=== PATIENT | female | born 1965 | race Caucasian/White ===

== ENCOUNTER 2016-06-01 05:42 | Observation (INO) | payer OTHER ==
[2016-06-01] MEDS ORDERED: Sodium Citrate/Citric Acid* 15 ML UDC PO ONE (06:00)
[2016-06-01] MEDS ORDERED: Buffered Lidocaine 1% SYR 3ML* 3 ML/SYR SYRINGE INTRADERM ONE (06:00)
[2016-06-01] MEDS ORDERED: ceFAZolin 2 GM PREMIX (*) 2 GM/50 ML BAG IVPB ONE (06:29)
[2016-06-01] MEDS ORDERED: Sodium Citrate/Citric Acid* 15 ML UDC ONE (06:29)
[2016-06-01] MEDS ORDERED: Lidocain 1% EPI 1:100,000 * 30 ML MDV ONE (07:06)
[2016-06-01] MEDS ORDERED: Bacitracin IV* 50,000 UNITS INJ ONE (07:07)
[2016-06-01] MEDS ORDERED: Thrombin 5,000 UNITS* 1 APPLIC KIT - topical use - TOPICAL ONE (07:07)
[2016-06-01] MEDS ORDERED: Midazolam* 1 MG/ML 2 ML VIAL (2 MG) ONE (07:32)
[2016-06-01] MEDS ORDERED: fentaNYL* 50 MCG/ML 2 ML VIAL (100 MCG VIAL) ONE ×2 (07:32→09:31)
[2016-06-01] MEDS ORDERED: Propofol* 10 MG/ML 20 ML BTL IV PUSH ONE (07:33)
[2016-06-01] MEDS ORDERED: Lidocaine 2% PF * 5 ML VIAL ONE (07:33)
[2016-06-01] MEDS ORDERED: Rocuronium* 10 MG/ML VIAL ONE (07:33)
[2016-06-01] MEDS ORDERED: Dexamethasone IV* 4 MG/ML 1 ML (4 MG) ONE (08:56)
[2016-06-01] MEDS ORDERED: Acetaminophen TAB* 325 MG PO PRN (09:09)
[2016-06-01] MEDS ORDERED: Magnesium Hydroxide LIQ* 30 ML UDC PO PRN (09:09)
[2016-06-01] MEDS ORDERED: Ondansetron INJ* 2 MG/ML VIAL ONE (09:09)
[2016-06-01] MEDS ORDERED: Ketorolac INJ* 30 MG/ML 1 ML VIAL ONE (09:09)
[2016-06-01] MEDS ORDERED: Ondansetron INJ* 2 MG/ML VIAL IV PRN (09:09)
[2016-06-01] MEDS ORDERED: DiMENhydriNATE IV* 50 MG/ML VIAL IV PUSH PRN (09:26)
[2016-06-01] MEDS: fentaNYL* 50 MCG/ML 2 ML VIAL (100 MCG VIAL) IV PRN ×2 (09:33→09:45)
[2016-06-01] MEDS: HYDROcodone/ACETAMIN 5-325 MG* 1 TAB PO PRN ×3 (09:55→22:31)
[2016-06-01] MEDS ORDERED: HYDROcodone/ACETAMIN 5-325 MG* 1 TAB ONE (09:55)
[2016-06-01] MEDS ORDERED: Morphine INJ* 4 MG/ML 1 ML CARPUJECT ONE (11:23)
[2016-06-01] MEDS: Nicotine PATCH 21 MG/24 HR* PATCH TRANSDERM SCH (12:04)
[2016-06-01] MEDS: Morphine INJ* 4 MG/ML 1 ML CARPUJECT IV PRN ×2 (16:41→20:54)
[2016-06-01] MEDS ORDERED: Cyclobenzaprine TAB* 10 MG PO PRN (19:06)
[2016-06-02] MEDS: HYDROcodone/ACETAMIN 5-325 MG* 1 TAB PO PRN ×4 (02:27→15:44)
[2016-06-02] MEDS: Morphine INJ* 4 MG/ML 1 ML CARPUJECT IV PRN (03:38)
[2016-06-02] MEDS ORDERED: Nicotine Patch Removal NOTE FOLLOW UP SCH (06:00)
--- NOTE | 2016-06-02 07:50 | PN ---
Progress Note - Progress Note SOAP: Subjective: [This is a 51 year old female s/p decompressive lumbar laminectomy L5-S1 on the right and lumbar discectomy L5-S1 on the right, POD#1. She is feeling well this morning. Complains of soreness at the incision. She is ambulating independently. She is eating and drinking without difficulty. Pre-operative lower extremity symptoms are improved. Denies numbness, tingling, weakness and pain in the left lower extremity. ] Objective: [ Vital Signs: Temp Pulse Resp BP Pulse Ox 97.4 F 69 18 104/62 97 06/02/16 03:23 06/02/16 03:23 06/02/16 06:25 06/02/16 03:23 06/02/16 03:23 General: Alert and oriented. No distress. Neuro: Motor and sensory intact. Incision: Intact with kris. Dressing clean. Extremities: Full ROM] Assessment: [Satisfactory post-operative course.] Plan: [1. Discharge home today. 2. Discharge instructions including wound care and activity level were discussed with the patient. ]
[2016-06-02 08:32] VITALS: BP 92/45
[2016-06-02] MEDS: Nicotine PATCH 21 MG/24 HR* PATCH TRANSDERM SCH (09:12)
--- NOTE | 2016-06-05 09:16 | OP ---
DATE OF OPERATION: 06/01/16 - ROOM #337 DATE OF : 65 SURGEON: Jamie Velasco MD. NEEDLE LOOM OPERATOR: MAK Jeffries. ANESTHESIOLOGIST: Eduardo Rm DO ANESTHESIA: General. PRE-OP DIAGNOSIS: Lumbar spondylolisthesis, L5-S1, with stenosis, L5-S1 on the right. POST-OP DIAGNOSES: Lumbar spondylolisthesis, L5-S1, with stenosis, L5-S1 on the right; herniated nucleus pulposus, L5-S1, on the right. OPERATIVE PROCEDURE: Decompressive lumbar laminectomy, L5-S1 on the right with excision of herniated nucleus pulposus with microdissection. DESCRIPTION OF PROCEDURE: After satisfactory general anesthesia was obtained, the patient was placed on the operating table in the prone position with the chest supported on the Yomi frame and the back slightly flexed. The lumbar region was then clipped, prepped, and draped in a sterile manner for a lumbar laminectomy and a skin incision outlined from L5 to the sacrum. This incision was infiltrated with 1% Xylocaine with epinephrine, after which it was turned down sharply to the level of the lumbar fascia. The fascia was divided along the spinous processes of L5 and S1 and the paraspinal musculature was stripped away from these posterior elements using the periosteal elevator and monopolar cautery. Preoperative x-rays obtained had suggested foraminal stenosis at L5- S1 on the right side. The inferior aspect of L5 was thinned out, as well as the medial aspect of the facet complex. This resulted in a detachment of the medial facet which was thinned out and removed with the Kerr[place] and curettes. The decompression was carried superiorly until normal dura was encountered and the L5 nerve root could be identified out laterally. There was noted to be compression on the L5 nerve root by lateral foraminal disk herniation. At this point, the operating microscope was brought into the field and utilizing microdissection, epidural venous structures were coagulated and divided. An opening was made in the posterior longitudinal ligament and multiple fragments of disk material were removed from the foraminal area compressing the L5 nerve root. The disk space itself was then cleared of any loose disk material using pituitary forceps and curettes. At the conclusion of the decompression, both the L5 and S1 nerve roots were noted to be free in their course. After assuring adequate hemostasis, the wound was thoroughly irrigated, after which a piece of Gelfoam was placed over the laminectomy defect. The fascia was then reapproximated with 0 Vicryl suture. The subcutaneous tissues were closed with 3-0 Vicryl and the skin closed with skin clips. The estimated blood loss less than 50 cc and final sponge, padding, and needle counts were correct. The patient was taken to recovery room, extubated, and in stable condition. [id number]/[facility] #: [id number] [facility] CENTERRadha
--- NOTE | 2016-06-16 02:34 | DS ---
DISCHARGE SUMMARY: DATE OF ADMISSION: 06/01/16 DATE OF DISCHARGE: 06/02/16 DISCHARGE DIAGNOSES: 1. Spondylolisthesis, L5-S1. 2. Anxiety. SPECIAL PROCEDURES: Decompressive lumbar laminectomy, L5-S1, on the right and lumbar diskectomy, L5-S1, on the right. HOSPITAL COURSE: This 51-year-old female was seen in the office with signs and symptoms of symptomatic spondylolisthesis causing right-sided L5 nerve root compromise. She failed to improve over several months with conservative treatments and was admitted at this time for elective surgical intervention. On the day of admission, she was taken to surgery, where under general anesthesia, a decompressive lumbar laminectomy at L5-S1 on the right, and lumbar diskectomy at L5- S1 on the right operation was carried out. Postoperatively, she has been feeling very well. Pain was well controlled with oral pain medications. She was ambulating independently. She was eating, drinking, and voiding without difficulty. On the first postoperative day, she was discharged home to the care of her family. Discharge instructions including activity level and wound care were provided. She will be seen in office in approximately 7 to 10 days for followup and staple removal. DISCHARGE MEDICATIONS: [place] 5/325 mg 2 tabs by mouth every 4 hours as needed for pain. MAK OLEA [id number]/[facility] #: [id number] MTDD
== END 2016-06-02 16:25 | disposition home or self-care (01) ==
LOC: OR 05:42 → SSU 10:38
PROVIDERS: ADMIT Neurological Surgery; ATTEND Neurological Surgery
DX: M43.16 Spondylolisthesis, lumbar region (principal); M48.07 Spinal stenosis, lumbosacral region; Z87.891 Personal history of nicotine dependence
CPT/HCPCS: 96374; 96375; A9270-GY; G0378; J0690; J1100; J1885; J2250; J2270; J2405; J2704; J3010

== ENCOUNTER 2016-06-03 17:39 | Emergency (ER) | payer OTHER ==
[2016-06-03] MEDS ORDERED: Morphine INJ* 2 MG/ML 1 ML CARPUJECT IV ONE (18:28)
[2016-06-03] MEDS ORDERED: Morphine INJ* 4 MG/ML 1 ML CARPUJECT IV ONE (18:58)
[2016-06-03] MEDS ORDERED: Ondansetron INJ* 2 MG/ML VIAL IV ONE (18:59)
[2016-06-03] MEDS ORDERED: LORazepam INJ* 2 MG/ML 1 ML VIAL IV PUSH ONE (19:06)
[2016-06-03 19:17] LABS: Urine Bilirubin Negative (Negative); Urine Glucose Negative (Negative); Urine Nitrite Negative (Negative)
--- NOTE | 2016-06-03 19:41 | RAD ---
INDICATION: Short of breath. Wheezing. COMPARISON: May 25, 2016 TECHNIQUE: An AP portable view obtained at 1922 hours is submitted. FINDINGS: Bones/Soft Tissues: There are no acute bony findings. Cardiomediastinal: The cardiomediastinal silhouette is normal. Lungs: There are no infiltrates. Pleura: There are no pleural effusions. Other: None IMPRESSION: NO ACTIVE DISEASE.
[2016-06-03 20:09] LABS: Hematocrit 36 % (35-47); Hemoglobin 11.9 g/dl (12.0-16.0); Mean Corpuscular HGB Conc 33 g/dl (31-36); Mean Corpuscular Hemoglobin 31 pg (27-31); Mean Corpuscular Volume 94 fL (80-97); Mean Platelet Volume 11 um3 (7.4-10.4); Red Blood Count 3.85 10^6/ul (4.0-5.4); Red Cell Distribution Width 14 % (10.5-15); White Blood Count 10.7 10^3/ul (3.5-10.8)
[2016-06-03 20:24] LABS: Albumin 3.5 g/dL (3.2-5.2); BUN/Creatinine Ratio 14.1 (8-20); Calcium 8.8 mg/dL (8.6-10.3); EGFR African American 125.8 (>60); EGFR Non-African American 97.8 (>60); Globulin 3.2 g/dL (2-4); Potassium 4.2 mmol/L (3.5-5.0); Total Bilirubin 0.5 mg/dL (0.2-1.0); Total Protein 6.7 g/dL (6.4-8.9)
[2016-06-03] MEDS ORDERED: Ondansetron ODT TAB* 4 MG PO ONE (20:47)
[2016-06-03] MEDS ORDERED: HYDROcodone/ACETAMIN 5-325 MG* 1 TAB PO ONE (20:47)
[2016-06-03] MEDS ORDERED: LORazepam TAB(*) 1 MG PO ONE ×2 (20:47→21:18)
[2016-06-03] MEDS ORDERED: Polyethylene Glycol 3350* 17 GM PACKET PO SCH (21:00)
--- NOTE | 2016-06-03 21:18 | ED ---
Back Pain - HPI Summary HPI Summary: Patient arrives to ED 2 days s/p laminectomy of L5-S1. She was discharged home with oxycodone. She states while on the oxycodone she becomes very loopy, anxious, begins to hyperventilate and feeling of almost passing out. She notes uncontrolled pain, constipation and nausea. Last BM was 4 days ago. She called Dr. Velasco today and was told it will take some time to heal and may be painful in the meantime. - History of Current Complaint Chief Complaint: EDGeneral Stated Complaint: BACK PAIN/DIFF BREATHING Time Seen by Provider: 06/03/16 18:18 Hx Obtained From: Patient Onset/Duration: Gradual Onset Onset/Duration: Started Days Ago Timing: Intermittent Back Pain Location: Is Discrete @ - L5 lumbar spine Severity Initially: Moderate Severity Currently: Severe Pain Intensity: 10 Pain Scale Used: 0-10 Numeric Character: Aching Aggravating Symptom(s): Bending, Walking Alleviating Symptom(s): Rest, Position Associated Signs And Symptoms: Positive: Pain with Weight Bearing - Risk Factors AAA Risk Factors: Negative TAD Risk Factors: Negative Cauda Equina Risk Factors: Negative Epidural Abscess Risk Factors: Negative - Allergies/Home Medications Allergies/Adverse Reactions: Allergies Allergy/AdvReac Type Severity Reaction Status Date / Time Acetaminophen [From Percocet] Allergy Anxiety Verified 06/03/16 18:25 Adhesive Tape Allergy welts, Verified 06/03/16 17:41 inflamation Oxycodone [From Percocet] Allergy Anxiety Verified 06/03/16 18:25 PMH/Surg Hx/FS Hx/Imm Hx Previously Healthy: Yes Cardiovascular History: Denies: Hx Pacemaker/ICD GI History: Reports: Hx Gastroesophageal Reflux Disease - controls with diet modification, Hx Irritable Bowel - controls with diet modification Musculoskeletal History: Reports: Hx Arthritis - knees, shoulders, hands, feet, hips Sensory History: Reports: Hx Contacts or Glasses - wears glasses Denies: Hx Hearing Aid Opthamlomology History: Reports: Hx Contacts or Glasses - wears glasses Psychiatric History: Reports: Hx Anxiety, Hx Depression Denies: Hx Panic Disorder - Surgical History Surgery Procedure, Year, and Place: REMOVAL OF BUMP BEHIND LEFT EAR benign, breast reduction 2009,childbirth 1995 and 1998,gall bladder 1999 Hx Anesthesia Reactions: No Infectious Disease History: No Infectious Disease History: Denies: Traveled Outside the [place] in Last 30 Days - Social History Occupation: Employed Full-time Lives: With Family Alcohol Use: Rare Alcohol Amount: 1-3 drinks once or twice a month Hx Substance Use: Yes Substance Use Type: Reports: Prescribed Substance Use Comment - Amount & Last Used: 3-4 cups per day Hx Tobacco Use: Yes Smoking Status (MU): Former Smoker Type: Cigarettes Amount Used/How Often: 5 cigg/day Have You Smoked in the Last Year: Yes Review of Systems Constitutional: Negative Eyes: Negative Cardiovascular: Negative Positive: Shortness Of Breath, Cough Gastrointestinal: Negative Positive: Arthralgia - lumbar spine pain midline at L5-S1 Skin: Other - small 1cm incision over L5 -s! s/p laminectomy. 2 sutures placed. wound looks CDI Positive: Headache Psychological: Normal Positive: Anxious All Other Systems Reviewed And Are Negative: Yes Physical Exam Triage Information Reviewed: Yes Vital Signs On Initial Exam: Initial Vitals Temp Pulse Resp BP Pulse Ox 99.1 F 66 18 89/64 97 06/03/16 17:41 06/03/16 17:41 06/03/16 17:41 06/03/16 17:41 06/03/16 17:41 Vital Signs Reviewed: Yes Appearance: Positive: Well-Nourished, Pain Distress Skin: Positive: Warm, Skin Color Reflects Adequate Perfusion, Other - small incision over L5 with 2 sutures placed and bandage. Wound CDI Head/Face: Positive: Normal Head/Face Inspection Eyes: Positive: EOMI, BERENICE Neck: Positive: Nontender, No Lymphadenopathy Respiratory/Lung Sounds: Positive: Breath Sounds Present, Wheezes Cardiovascular: Positive: Normal, Pulses are Symmetrical in both Upper and Lower Extremities Musculoskeletal: Positive: Normal, Pain @ - L5 area of lumbar spine Neurological: Positive: Sensory/Motor Intact, Alert, Oriented to Person Place, Time, Speech Normal Psychiatric: Positive: Anxious AVPU Assessment: Alert - Jose D Coma Scale Best Eye Response: 4 - Spontaneous Best Motor Response: 6 - Obeys Commands Best Verbal Response: 5 - Oriented Coma Scale Total: 15 Diagnostics - Vital Signs Vital Signs Temp Pulse Resp BP Pulse Ox 06/03/16 20:04 16 06/03/16 20:01 72 126/79 87 06/03/16 20:00 64 89 06/03/16 19:51 64 98 06/03/16 19:18 42 85 06/03/16 18:33 18 06/03/16 18:30 60 110/49 98 06/03/16 18:18 79 134/49 97 06/03/16 18:09 66 97 06/03/16 17:44 72 96 06/03/16 17:43 89/64 06/03/16 17:41 99.1 F 66 18 89/64 97 - Laboratory Lab Results: Lab Results 06/03/16 06/03/16 06/03/16 Range/Units 17:55 20:00 20:00 WBC 10.7 (3.5-10.8) 10^3/ul RBC 3.85 L (4.0-5.4) 10^6/ul Hgb 11.9 L (12.0-16.0) g/dl Hct 36 (35-47) % MCV 94 (80-97) fL MCH 31 (27-31) pg MCHC 33 (31-36) g/dl RDW 14 (10.5-15) % Plt Count 163 (150-450) 10^3/ul MPV 11 H (7.4-10.4) um3 Neut % (Auto) 65.9 (38-83) % Lymph % (Auto) 24.1 L (25-47) % [place] % (Auto) 6.7 (1-9) % Eos % (Auto) 2.6 (0-6) % Baso % (Auto) 0.7 (0-2) % Absolute Neuts (auto) 7.0 (1.5-7.7) 10^3/ul Absolute Lymphs (auto) 2.6 (1.0-4.8) 10^3/ul Absolute Monos (auto) 0.7 (0-0.8) 10^3/ul Absolute Eos (auto) 0.3 (0-0.6) 10^3/ul Absolute Basos (auto) 0.1 (0-0.2) 10^3/ul Absolute Nucleated RBC 0 10^3/ul Nucleated RBC % 0 Sodium 139 (133-145) mmol/L Potassium 4.2 (3.5-5.0) mmol/L Chloride 100 L (101-111) mmol/L Carbon Dioxide 35 H (22-32) mmol/L Anion Gap 4 (2-11) mmol/L BUN 9 (6-24) mg/dL Creatinine 0.64 (0.51-0.95) mg/dL Est GFR ( Amer) 125.8 (>60) Est GFR (Non-Af Amer) 97.8 (>60) BUN/Creatinine Ratio 14.1 (8-20) Glucose 88 (70-100) mg/dL Calcium 8.8 (8.6-10.3) mg/dL Total Bilirubin 0.50 (0.2-1.0) mg/dL AST 63 H (13-39) U/L ALT 65 H (7-52) U/L Alkaline Phosphatase 58 (34-104) U/L Total Creatine Kinase 31 (10-223) U/L C-Reactive Protein Pending Total Protein 6.7 (6.4-8.9) g/dL Albumin 3.5 (3.2-5.2) g/dL Globulin 3.2 (2-4) g/dL Albumin/Globulin Ratio 1.1 (1-3) Urine Color Yellow Urine Appearance Cloudy Urine pH 5.0 (5-9) Ur Specific [place] 1.015 (1.010-1.030) Urine Protein Negative (Negative) Urine Ketones Negative (Negative) Urine Blood Negative (Negative) Urine Nitrate Negative (Negative) Urine Bilirubin Negative (Negative) Urine Urobilinogen Negative (Negative) Ur Leukocyte Esterase Negative (Negative) Urine Glucose Negative (Negative) Result Diagrams: 06/03/16 20:00 06/03/16 20:00 Lab Statement: Any lab studies that have been ordered have been reviewed, and results considered in the medical decision making process. Back Pain Course/Dx - Course Course Of Treatment: Patient complaining of pain, constipation, nausea, anxiety and adverse reaction to oxycodone. Patient given morphine on arrival. No relief. 2mg more of morphine given, ativan given and zofran given. Patient getting relief from medications. Patient agrees to follow up with DR. Velasco next week. Sent prescriptions of ativan, miralax, zofran and norco. Patient took norco after surgery with no adverse effects. - Diagnoses Differential Diagnosis/HQI/PQRI: Positive: Herniated Disc, Septic Arthritis, Strain Provider Diagnoses: Post surgical complication Discharge - Discharge Plan Condition: Stable Disposition: HOME Prescriptions: Hydrocodone/Acetamin 10/325(NF [[place] 10/325 (NF)] 1 tab PO Q6H #20 tab MDD 4 LORazepam TAB(*) [Ativan TAB(*)] 1 mg PO Q4H PRN #30 tab MDD 6 PRN Reason: Anxiety Ondansetron ODT TAB* [Zofran Odt TAB*] 4 mg PO Q6H PRN #20 tab.odt PRN Reason: Nausea Polyethylene Glycol 3350* [Miralax*] 17 gm PO DAILY #10 packet Patient Education Materials: Hydrocodone/Acetaminophen (By mouth), Polyethylene Glycol 3350 (By mouth), Anxiety (ED) Referrals: Dimas Saenz MD [Primary Care Provider] - Additional Instructions: Take all medications as directed. Follow up with Dr. Velasco next week. If symptoms worsen, come back to ED. Only use pain medication and anxiety medication as needed. Do not drive with these medications as they make you drowsy.
[2016-06-03] MEDS ORDERED: Ondansetron TAB* 4 MG PO ONE (21:19)
[2016-06-03 21:22] LABS: C Reactive Protein 42.54 mg/L (< 5.00)
[2016-06-03 21:26] VITALS: BP 120/74
--- NOTE | 2016-06-03 23:52 | PN ---
Progress Note - Progress Note Note: Patient called reporting her allergy was not to oxycodone as discussed during visit, but to hydrocodone, which is what provider prescribed for tonights visit. Explained on phone to dispense of other medication properly and will send prescription for morphine to pharmacy to [facility] tomorrow.
== END 2016-06-03 21:37 | disposition home or self-care (01) ==
LOC: ED 17:39
DX: M96.89 Other intraoperative and postprocedural complications and disorders of the musculoskeletal system (principal); Y83.8 Other surgical procedures as the cause of abnormal reaction of the patient, or of later complication, without mention of misadventure at the time of the procedure; Y92.9 Unspecified place or not applicable; Z88.5 Allergy status to narcotic agent; K21.9 Gastro-esophageal reflux disease without esophagitis; K58.9 Irritable bowel syndrome, unspecified; Z87.891 Personal history of nicotine dependence; F41.9 Anxiety disorder, unspecified
CPT/HCPCS: 36415; 71010; 80053; 81003; 82550; 85025; 86140; 96374; 96375; 96376; 99284; A9270-GY; J2060; J2270; J2405

== ENCOUNTER 2017-09-02 15:58 | Emergency (ER) | payer OTHER ==
--- OUTSIDE RECORDS SUMMARY | 2017-09-02 16:06 | XMS REPORT ---
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 Onset: 05/02/2013 Attention deficit hyperactivity Altagracia Herrera M.D. Active disorder Onset: 05/02/2013 Degenerative joint disease Altagracia Herrera M.D. Active involving multiple joints Onset: 05/02/2013 Gastroesophageal reflux disease Altagracia Herrera M.D. Active Onset: 05/02/2013 Tobacco user Altagracia Herrera M.D. Active Onset: 05/02/2013 Varicose veins of lower extremity Altagracia Herrera M.D. Active Family History Date Family Member(s) Problem(s) Comments : (age 65 Father due to Lymphoma Years) Father Hypertension Father Obesity Mother Diabetes Mother Hypercholesterolemia Children 2 First Daughter Bipolar Disorder First Daughter Aspberger's Syndrome Paternal Grandfather due to Peptic Ulcer () Disease Paternal Grandfather due to Alcoholism () Paternal Grandmother due to Alcoholism () Paternal Grandmother due to Liver Disease () : (age 52 Maternal Grandfather due to NE Years) : (age 83 Maternal Grandmother due to Blood Disorder Years) Maternal Grandmother Pneumonia Social History Type Date Description Comments Education Currently working on bachelor's degree Marital Status Lives With Lives with son, daughter Lives With Mother Occupation Currently Working Cigarette Use Light tobacco smoker (10 or fewer cigarettes/day) ETOH Use Rarely consumes alcohol Recreational Drug Use Used OTC ephedrine drinking. 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 05/09 Nortriptyline 11/16 Hx Capsules 25mg 30cap 1 tab by M54.31 Dimas HCL s mouth daily [place], - every night 05/09 Gabapentin 08/19 Hx Capsules 300mg 45cap 1 tab by Dimas s mouth three [place], - times a day 05/09 as needed Ibuprofen 08/19 Hx Tablets 600mg 45tab 1 tab by Dimas s mouth three [place], - times a day 05/09 as needed Sudafed 05/24 Hx Tablets 30mg 30tab 1 tab by J01.90 Dimas s mouth three [place], - times a day 08/19 facial pressure Fluticasone 05/24 Hx Suspension 50mcg/Act 1unit 1 puff J01.90 Dimas Propionate s daily [place], - MD 08/19 Augmentin 05/24 Hx Tablets 875-125mg 20tab 1 take by Dimas s mouth [place], - tablet 05/09 every hours for 10 days for infection Azithromycin 02/17 Hx Tablets 250mg 6tabs take 2 J20.9 tablets by Dany, - mouth one 05/24 time take one daily for 4 days Hydrocodone-Kervin 11/13 Hx Tablets 5-325mg 15fif 1 by mouth 727.3 Nicolasa taminophen teen q 6 hours Pola, - as needed [employer]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 M.D. 11/13 Prednisone 01/22 Hx Tablets 20mg 10tab take two Nicolasa s tablets Pola, - daily for 5 [employer]ETLAND SCIENTIST-C 02/17 days time Azithromycin 01/22 Hx Tablets 250mg 6tabs take 2 Altagracia tablets by Alverto Herrera, - mouth today M.D. 11/13 and tablet by mouth daily days 2-5 Qvar 01/19 Hx Aerosol 80mcg/Act 1inha take one .11 lers puff by Alverto Herrera, - mouth twice M.D. 01/22 a Ventolin HFA 01/19 Hx Aerosol 108(90Bas 1unit take one 519.11 e) s puff by Alverto Herrera, - mcg/Act mouth every M.D. 11/13 4-6 hours /2014 as needed for cough Robitussin ac 01/19 Hx 300ml 1-2 J98.01 teaspoon by Dany, - mouth MD 08/19 q4-6hr needed cough/pain No Active 10/24 Hx Unknown Medications /2013 - 11/12 Xanax 10/30 Hx Tablets 0.25mg 20tab One To Two 300.00 Zoila A. /2006 s Tabs PO bid Alayna, - F.N.P.C. 05/02 Metrogel 08/27 Hx Cream 0.75% 45G Apply bid 695.3 Zoila A. /2006 To Face Alayna, - F.N.P.C. 05/02 Robitussin A-c 04/26 Hx Syrup 100mg;10m 4Oz One -Two g/5ML Teaspoons P. Blegen, - PO QHS prn M.D. 08/27 Cough- Causes Drowsiness Proventil HFA 04/26 Hx Aerosol 90mcg/Dos 2 Puffs Q 4 e Hours prn P. Blegen, - M.D. 05/02 Zithromax Z-Maurilio 04/26 Hx Tablets 250mg 6tabs Two PO qd Today And P. Blegen, - Then One PO M.D. 08/27 qd For Days Azmacort Mdi 04/26 Hx Inhaler 20Gra 4 Puffs bid ms as Directed P. Blegen, - For 2-4 M.D. Rinse Mouth After Physical 10/17 Hx 12uni evaluate 723.1 ts and treat Aubrey - neck and Baltazar, 05/02 shoulder M.D. pain Xenical 01/23 Hx Capsules 120mg 90cap one po tid V70.0 s before Aubrey - meals Baltazar, 08/27 M.D. /2006 Amoxicillin 08/28 Hx Tablets 500mg 30tab 1 po tid 034.0 s Aubrey - Baltazar, 01/23 M.D. Keflex 03/29 Hx Capsules 500mg 14cap 1 bid x 7 s days [facility] M.DMynor 05/11 Ultracet 10/26 Hx 20uni 1-2 po at 729.4 Viridiana 37.5/ ts hs prn pain Aubrey Ledesma, 05/11 M.D. Ibuprofen 09/14 Hx Tablets 600mg 120ta one po tid bs to qid prn Kavon.WMynor - pain Baltazar, 09/14 M.D. Ibuprofen 09/14 Hx Tablets 800mg 90tab 1 po q8 s hours prn Aubrey - heel pain, Baltazar, 05/02 take with M.D. food Zithromax 07/11 Hx Tablets 250mg 6tabs 2 on day 465.9 Zoila A. one, then Alayna, - one qd x4 F.N.P.C. Albuterol 07/11 Hx Aerosol 90mcg/Dos 17gm two puffs 465.9 Zoila A. e every four Alayna, - - six hours F.N.P.C. 05/11 prn wheeze /2005 Clarinex 11/13 Hx Tablets 5mg 3tabs one po qd prn hives Soboroff, - M.D. 05/09 Naprosyn-Ec 02/11 Hx Tablets 500mg 60tab one bid 724.5 s starting 2 K.W. - days prior Baltazar, 05/09 to menses M.D. ecah month. Aerobid 11/12 Hx Inhaler One two puffs by Yovany Farmer, - aerochamber M.D. 05/09 twice daily /2004 - rinse mouth with water after last puffs- use every day for 2 weeks Aerochamber - 11/12 Hx Unit One use with Nirmala metered P. Blegen, - dose M.D. 05/09 inhalers /2004 -PT will bring in coupon for free chamber Humibid DM 11/12 Hx Tablets 40tab take two Nirmala s tablets by Yovany Farmer, - mouth twice M.D. 05/09 daily /2004 along with lots of liquids Prednisone 11/12 Hx Tablets 20mg 9tabs 3 po qd with food Yovany Farmer, - today then M.D. 05/09 2 po qd for 3 days as directed Flexeril 10/08 Hx Tablets 10mg 30tab one tid 724.2 Viridiana /2003 s Aubrey Ledesma, 05/09 M.D. Buspar 09/02 Hx Tablets 5mg 90tab take one 300.02 Zoila A. s tablet two Alayna, - to three F.N.P.C. 05/02 times daily Buspar 07/09 Hx 10mg 30uni 1 po bid to 300.02 ts tid Aubrey Ledesma, 05/02 M.DMynor 625.4 Buspar 06/24/2002 - Hx Tablets 5mg 30tabs Take One Tablet 300.02 Unknown 07/09/2002 Daily, and increase to tid prn anxiety Zoloft 02/06/2002 - Hx Tablets 100mg 30tabs One half tab qd 300.02 Viridiana 03/27/2002 for one week, K.W. then increase to Baltazar, one tab po qd M.D. Physical 02/06/2002 - Hx evaluate for l 300.02 Viridiana Therapy 05/09/2004 thoracic Aubrey radiculopathy Baltazar, and treat as M.D. needed Ibuprofen 02/06/2002 - Hx 800mg 90units one po tid with 724.5 Viridiana Tablets 02/11/2003 food Aubrey Ledesma M.D. Zantac 01/28/2002 - Hx Tablets 150mg 30tabs One bid Nicolasa 03/27/2002 Sean Rocha Xanax 01/23/2002 - Hx Tablets 0.5mg 90tabs 1/2 To One tid 300.02 Viridiana 03/27/2002 prn Aubrey Ledesma M.D. 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 SCIENTIST-C Immunizations CPT Code Status Date Vaccine Lot # [id number] Given 11/21/2016 Tdap (Adacel) [id number] Given 12/10/2015 Influenza Virus Vaccine, Quadrivalent, 3 Yr > [id number] Quad, Preserv Free 23187 Given 03/19/2014 Influenza Virus Vaccine, Quadrivalent, 3 Yr > Quad, Preserv Free 34192 Given 05/02/2013 Flumist, Influenza Vaccine Quadrivalent, Live For [id number] Intranasal Use 59284 Given 01/24/2007 Influenza Virus Vaccine, 3 Yrs And Above [id number] 95530 Given 02/11/2003 Influenza Virus Vaccine, 3 Yrs And Above 58171 Given 03/27/2002 Influenza Virus Vaccine, 3 Yrs And Above Vital Signs Date Vital Result Comment 08/14/2017 Weight 234.00 lb Weight in kg's 106.142 BP Systolic 116 mmHg BP Diastolic 78 mmHg Heart Rate 78 /min Body Temperature 97.0 F Respiratory Rate 16 /min Last Menstrual Period 5755383 O2 % BldC Oximetry 98 % 05/31/2017 Weight 230.00 lb pt stated Weight in kg's 104.328 BP Systolic 122 mmHg BP Diastolic 80 mmHg Heart Rate 100 /min Body Temperature 98.0 F Respiratory Rate 14 /min O2 % BldC Oximetry 98 % 11/23/2016 Weight 233.00 lb Weight in kg's 105.689 BP Systolic 128 mmHg BP Diastolic 80 mmHg Heart Rate 80 /min Body Temperature 97.1 F Respiratory Rate 16 /min O2 % BldC Oximetry 98 % 11/21/2016 Weight 230.00 lb Weight in kg's 104.328 BP Systolic 110 mmHg BP Diastolic 80 mmHg Heart Rate 92 /min Body Temperature 98.1 F Respiratory Rate 14 /min Height 68.5 inches 5'8.50" BMI (Body Mass Index) 34.5 kg/m2 05/09/2016 Weight 228.00 lb Weight in kg's 103.421 BP Systolic 128 mmHg BP Diastolic 84 mmHg Heart Rate 88 /min Body Temperature 98.3 F Respiratory Rate 26 /min O2 % BldC Oximetry 98 % 12/10/2015 Weight 225.00 lb Weight in kg's 102.060 BP Systolic 110 mmHg BP Diastolic 72 mmHg Heart Rate 88 /min O2 % BldC Oximetry 98 % 11/17/2015 Weight 220.00 lb Weight in kg's 99.792 BP Systolic 10 mmHg BP Diastolic 68 mmHg Heart Rate 76 /min Body Temperature 98.0 F Respiratory Rate 16 /min 08/20/2015 Weight 220.00 lb Weight in kg's 99.792 BP Systolic 129 mmHg BP Diastolic 100 mmHg Heart Rate 104 /min 05/24/2015 Weight 221.00 lb Weight in kg's 100.246 BP Systolic 141 mmHg BP Diastolic 87 mmHg Heart Rate 80 /min Body Temperature 98.4 F O2 % BldC Oximetry 99 % 02/17/2015 Weight 217.00 lb Weight in kg's 98.431 BP Systolic 120 mmHg BP Diastolic 76 mmHg Heart Rate 80 /min Body Temperature 98.3 F 01/04/2015 Weight 218.00 lb Weight in kg's 98.885 BP Systolic 110 mmHg BP Diastolic 80 mmHg Heart Rate 76 /min 11/13/2014 Weight 220.00 lb Weight in kg's 99.792 BP Systolic 110 mmHg BP Diastolic 70 mmHg Heart Rate 68 /min 09/22/2014 Weight 228.00 lb Weight in kg's 103.421 BP Systolic 110 mmHg BP Diastolic 80 mmHg Heart Rate 72 /min Right Visual Acuity Distance 20/20 Corrected Left Visual Acuity Distance 20/20 Both Visual Acuity Distance 20/20 2014 Weight 234.00 lb Weight in kg's 106.142 BP Systolic 112 mmHg BP Diastolic 56 mmHg Heart Rate 76 /min Body Temperature 97.0 F O2 % BldC Oximetry 95 % 01/19/2014 Weight 234.00 lb Weight in kg's 106.142 BP Systolic 120 mmHg BP Diastolic 70 mmHg Heart Rate 82 /min Body Temperature 97.9 F O2 % BldC Oximetry 98 % On Room Air 10/24/2013 Weight 236.00 lb Weight in kg's 107.050 BP Systolic 120 mmHg BP Diastolic 75 mmHg Heart Rate 84 /min Body Temperature 97.7 F 05/02/2013 Weight 223.00 lb Weight in kg's 101.153 BP Systolic 116 mmHg BP Diastolic 80 mmHg Heart Rate 84 /min Height 69 inches 5'9" BMI (Body Mass Index) 32.9 kg/m2 Last Menstrual Period [id number] Tubal Ligation 01/24/2007 Weight 285.00 lb Weight in kg's 129.276 BP Systolic 118 mmHg BP Diastolic 80 mmHg Heart Rate 74 /min Height 70 inches 5'10" BMI (Body Mass Index) 40.9 kg/m2 10/30/2006 Weight 282.00 lb Weight in kg's 127.915 BP Systolic 132 mmHg BP Diastolic 72 mmHg Heart Rate 72 /min Body Temperature 98.0 F oral Height 70 inches 5'10" BMI (Body Mass Index) 40.5 kg/m2 09/25/2006 Weight 280.00 lb Weight in kg's 127.008 BP Systolic 120 mmHg BP Diastolic 70 mmHg Body Temperature 97.0 F Height 70 inches 5'10" BMI (Body Mass Index) 40.2 kg/m2 08/27/2006 Weight 284.00 lb Weight in kg's 128.822 BP Systolic 120 mmHg BP Diastolic 80 mmHg Heart Rate 84 /min Respiratory Rate 18 /min Height 70 inches 5'10" BMI (Body Mass Index) 40.7 kg/m2 04/26/2006 Weight 278.00 lb Weight in kg's 126.101 BP Systolic 120 mmHg BP Diastolic 68 mmHg Heart Rate 68 /min Body Temperature 97.0 F 01/23/2006 Weight 274.00 lb Weight in kg's 124.286 BP Systolic 120 mmHg BP Diastolic 68 mmHg Heart Rate 62 /min 08/28/2005 Weight 265.00 lb Weight in kg's 120.204 BP Systolic 130 mmHg BP Diastolic 82 mmHg Body Temperature 97.0 F 05/11/2005 BP Systolic 110 mmHg BP Diastolic 72 mmHg Heart Rate 76 /min Body Temperature 97.0 F Last Menstrual Period 5103021 03/29/2005 Weight 268.00 lb Weight in kg's 121.565 BP Systolic 128 mmHg BP Diastolic 82 mmHg 11/23/2004 BP Systolic 118 mmHg BP Diastolic 60 mmHg Body Temperature 97.3 F 11/15/2004 Weight 266.00 lb Weight in kg's 120.658 BP Systolic 120 mmHg BP Diastolic 80 mmHg 10/26/2004 Weight 267.00 lb Weight in kg's 121.111 BP Systolic 122 mmHg BP Diastolic 80 mmHg Heart Rate 80 /min 08/30/2004 Weight 264.00 lb Weight in kg's 119.750 BP Systolic 120 mmHg BP Diastolic 82 mmHg 07/11/2004 Weight 269.00 lb Weight in kg's 122.018 BP Systolic 110 mmHg BP Diastolic 80 mmHg Body Temperature 97.5 F Height 70 inches 5'10" BMI (Body Mass Index) 38.6 kg/m2 05/09/2004 Weight 274.00 lb Weight in kg's 124.286 BP Systolic 122 mmHg BP Diastolic 80 mmHg Heart Rate 76 /min Respiratory Rate 18 /min Height 70 inches 5'10" BMI (Body Mass Index) 39.3 kg/m2 Last Menstrual Period 0979898 11/14/2003 Weight 267.00 lb With Shoes Weight in kg's 121.111 Body Temperature 97.0 F 07/07/2003 Weight 269.00 lb Weight in kg's 122.018 BP Systolic 114 mmHg BP Diastolic 72 mmHg Body Temperature 97.2 F 02/11/2003 Weight 272.00 lb Weight in kg's 123.379 BP Systolic 106 mmHg BP Diastolic 70 mmHg Heart Rate 76 /min Height 69.5 inches BMI (Body Mass Index) 39.6 kg/m2 Last Menstrual Period 7842064 11/12/2002 Weight 271.00 lb Weight in kg's 122.926 BP Systolic 120 mmHg BP Diastolic 76 mmHg Body Temperature 98.6 F 10/08/2002 Weight 270.00 lb Weight in kg's 122.472 BP Systolic 118 mmHg BP Diastolic 76 mmHg 08/12/2002 Weight 270.00 lb Weight in kg's 122.472 BP Systolic 120 mmHg BP Diastolic 76 mmHg 07/09/2002 Weight 273.00 lb Weight in kg's 123.833 BP Systolic 100 mmHg BP Diastolic 68 mmHg Heart Rate 88 /min Body Temperature 97.3 F 06/24/2002 Weight 268.00 lb Weight in kg's 121.565 BP Systolic 110 mmHg BP Diastolic 80 mmHg 03/27/2002 Weight 269.00 lb Weight in kg's 122.0 BP Systolic 104 mmHg BP Diastolic 68 mmHg Heart Rate 72 /min 02/06/2002 Weight 266.00 lb Weight in kg's 120.7 BP Systolic 112 mmHg BP Diastolic 68 mmHg Heart Rate 80 /min Height 68.75 inches BMI (Body Mass Index) 39.6 kg/m2 Last Menstrual Period [id number] 01/28/2002 BP Systolic 100 mmHg BP Diastolic 68 mmHg Heart Rate 78 /min 01/23/2002 Weight 267.00 lb Weight in kg's 121.1 BP Systolic 104 mmHg BP Diastolic 68 mmHg Heart Rate 72 /min Results Test Date Test Result H/L Range Note Urine DIP 08/14/2017 Leukocytes ++ neg Urine Nitrites pos Neg Urobilinogen norm Norm Total Protein, Urine + Neg Urine pH 5 5-6 Urine Blood 250 High Neg Specific [place] 1.025 High 1.01-1.02 Urine Ketones neg Neg Urine Bilirubin neg Neg Urine Glucose norm Norm Laboratory test 06/21/2017 Surgical Interface SEE RESULT BELOW 1 finding Order Laboratory test 01/11/2017 Surgical Pathology SEE RESULT BELOW 2, 3 finding Laboratory test 01/05/2017 Hepatitis C Antibody Nonreactive Nonreactive finding Lipid Profile 01/05/2017 Triglycerides 178 mg/dL 4 (Trig/Chol/HDL) Cholesterol 204 mg/dL 5 HDL Cholesterol 38.4 mg/dL 6 LDL Cholesterol 130 mg/dL 7 Comp Metabolic Panel 01/05/2017 Sodium 139 mmol/L 133-145 Potassium 4.5 mmol/L 3.5-5.0 Chloride 106 mmol/L 101-111 Co2 Carbon Dioxide 28 mmol/L 22-32 Anion Gap 5 mmol/L 2-11 Glucose 95 mg/dL 70-100 Blood Urea Nitrogen 13 mg/dL 6-24 Creatinine 0.67 mg/dL 0.51-0.95 BUN/Creatinine Ratio 19.4 8-20 Calcium 8.7 mg/dL 8.6-10.3 Total Protein 6.8 g/dL 6.4-8.9 Albumin 4.0 g/dL 3.2-5.2 Globulin 2.8 g/dL 2-4 Albumin/Globulin Ratio 1.4 1-3 Total Bilirubin 0.40 mg/dL 0.2-1.0 Alkaline Phosphatase 60 U/L 34-104 Alt 14 U/L 7-52 Ast 15 U/L 13-39 Egfr Non- 92.8 >60 Egfr 119.3 >60 8 CBC Auto Diff 01/05/2017 White Blood Count 8.2 10^3/uL 3.5-10.8 Red Blood Count 4.27 10^6/uL 4.0-5.4 Hemoglobin 13.7 g/dL 12.0-16.0 Hematocrit 41 % 35-47 Mean Corpuscular Volume 95 fL 80-97 Mean Corpuscular Hemoglobin 32 pg High 27-31 Mean Corpuscular HGB Conc 34 g/dL 31-36 Red Cell Distribution Width 13 % 10.5-15 Platelet Count 207 10^3/uL 150-450 Mean Platelet Volume 11 um3 High 7.4-10.4 Abs Neutrophils 4.6 10^3/uL 1.5-7.7 Abs Lymphocytes 2.4 10^3/uL 1.0-4.8 Abs Monocytes 0.6 10^3/uL 0-0.8 Abs Eosinophils 0.4 10^3/uL 0-0.6 Abs Basophils 0.1 10^3/uL 0-0.2 Abs Nucleated RBC 0 10^3/uL Granulocyte % 56.5 % 38-83 Lymphocyte % 29.9 % 25-47 Monocyte % 7.8 % 1-9 Eosinophil % 5.0 % 0-6 Basophil % 0.8 % 0-2 Nucleated Red Blood Cells % 0 CBC Auto Diff 06/03/2016 White Blood Count 10.7 10^3/uL 3.5-10.8 Red Blood Count 3.85 10^6/uL Low 4.0-5.4 Hemoglobin 11.9 g/dL Low 12.0-16.0 Hematocrit 36 % 35-47 Mean Corpuscular Volume 94 fL 80-97 Mean Corpuscular Hemoglobin 31 pg 27-31 Mean Corpuscular HGB Conc 33 g/dL 31-36 Red Cell Distribution Width 14 % 10.5-15 Platelet Count 163 10^3/uL 150-450 Mean Platelet Volume 11 um3 High 7.4-10.4 Abs Neutrophils 7.0 10^3/uL 1.5-7.7 Abs Lymphocytes 2.6 10^3/uL 1.0-4.8 Abs Monocytes 0.7 10^3/uL 0-0.8 Abs Eosinophils 0.3 10^3/uL 0-0.6 Abs Basophils 0.1 10^3/uL 0-0.2 Abs Nucleated RBC 0 10^3/uL Granulocyte % 65.9 % 38-83 Lymphocyte % 24.1 % Low 25-47 Monocyte % 6.7 % 1-9 Eosinophil % 2.6 % 0-6 Basophil % 0.7 % 0-2 Nucleated Red Blood Cells % 0 Comp Metabolic Panel 06/03/2016 Sodium 139 mmol/L 133-145 Potassium 4.2 mmol/L 3.5-5.0 Chloride 100 mmol/L Low 101-111 Co2 Carbon Dioxide 35 mmol/L High 22-32 Anion Gap 4 mmol/L 2-11 Glucose 88 mg/dL 70-100 Blood Urea Nitrogen 9 mg/dL 6-24 Creatinine 0.64 mg/dL 0.51-0.95 BUN/Creatinine Ratio 14.1 8-20 Calcium 8.8 mg/dL 8.6-10.3 Total Protein 6.7 g/dL 6.4-8.9 Albumin 3.5 g/dL 3.2-5.2 Globulin 3.2 g/dL 2-4 Albumin/Globulin Ratio 1.1 1-3 Total Bilirubin 0.50 mg/dL 0.2-1.0 Alkaline Phosphatase 58 U/L 34-104 Alt 65 U/L High 7-52 Ast 63 U/L High 13-39 Egfr Non- 97.8 >60 Egfr 125.8 >60 9 Laboratory test finding 06/03/2016 Creatine Kinase 31 U/L 10-223 C Reactive Protein 42.54 mg/L High < 5.00 10 Urinalysis Profile 06/03/2016 Urine Color Yellow Urine Appearance Cloudy Urine Specific [place] 1.015 1.010-1.030 Urine pH 5.0 5-9 Urine Urobilinogen Negative Negative Urine Ketones Negative Negative Urine Protein Negative Negative Urine Leukocytes Negative Negative Urine Blood Negative Negative Urine Nitrite Negative Negative Urine Bilirubin Negative Negative Urine Glucose Negative Negative Laboratory test finding 10/24/2013 Magnesium 2.1 mg/dL 1.9-2.7 Vitamin D, 25 Hydroxy 10/24/2013 25-Hydroxy Vitamin D2 <4.0 ng/mL 25-Hydroxy Vitamin D3 30 ng/mL 25-Hydroxy Vitamin D Total 30 ng/mL 11 Laboratory test finding 10/24/2013 C Reactive Protein 3.99 mg/L < 5.00 12 TSH (Thyroid Stimulating Horm) 1.22 IU/mL 0.34-5.60 Vitamin B12 382 pg/mL 180-914 13 Lyme Western Blot 10/24/2013 Lyme Disease IgG Ab WB Negative Negative Lyme Disease IgG Bands Present p41, kDa Lyme Disease IgM Ab WB Negative Negative Lyme Disease IgM Bands Present No bands detecte <SEE NOTE> kDa 14 Lyme Disease Interpretation See Comment 15 Arthritis Panel 10/24/2013 Erythrocyte Sed Rate 17 mm/Hr High 0-14 Uric Acid 3.9 mg/dL 2.3-6.6 Karla (Anti-Nuclear AB) Screen Negative Negative Rheumatoid Factor <15 IU/mL <15 16 Lipid Profile (Trig/Chol/HDL) 05/02/2013 Triglycerides 147 mg/dL 40-200 Cholesterol 238 mg/dL High Less than 200 HDL Cholesterol 46 mg/dL 40-60 17 Cholesterol/HDL Ratio 5.2 Average High 1-4.44 LDL Cholesterol 162.6 High Less Than 100 18 Liver Function Panel 05/02/2013 Total Protein 7.3 g/dL 6.2-8.1 Albumin 4.4 g/dL 3.6-5.4 Globulin 2.9 g/dL 2-4 Albumin/Globulin Ratio 1.5 1-3 Total Bilirubin 0.9 mg/dL 0.4-1.5 Direct Bilirubin 0.1 mg/dL 0.1-0.5 Indirect Bilirubin 0.8 mg/dL 0.3-1.0 Alkaline Phosphatase 68 U/L 30-110 Alt 17 U/L 14-54 Ast 19 U/L 12-42 Laboratory test finding 05/02/2013 TSH (Thyroid Stimulating 1.51 miu/mL 0.34-5.60 Horm) Vitamin B12 267 pg/mL 180-914 Vitamin D 1,25-Dihydroxy 49 pg/mL 18-78 19 CBC No Diff 05/02/2013 White Blood Count 11.5 10^3/uL High 4.8-10.8 Red Blood Count 4.60 10^6/uL 4.0-5.4 Hemoglobin 15.2 g/dL 12.0-16.0 Hematocrit 44 % 35-47 Mean Corpuscular Volume 96 fL 80-97 Mean Corpuscular Hemoglobin 33 pg High 27-31 Mean Corpuscular HGB Conc 35 g/dL 31-36 Red Cell Distribution Width 13 % 10.5-15 Platelet Count 236 10^3/uL 150-450 Mean Platelet Volume 11 um3 High 7.4-10.4 Urine DIP 10/30/2006 Leukocytes neg Neg Urine Nitrites neg Neg Urine pH 5 5-6 Total Protein, Urine neg Neg Urine Glucose norm Norm Urine Ketones neg Neg Urobilinogen norm Norm Urine Bilirubin neg Neg Urine Blood neg Neg Specific [place] n/a Low 1.01-1.02 Urine Culture And 09/25/2006 Urine Culture SPECIMEN CONTAIN 20 Sensitivites Sensitivi <SEE NOTE> Urine DIP 09/25/2006 Leukocytes NEG Neg Urine Nitrites NEG Neg Urine pH 5NL 5-6 Total Protein, Urine NL Neg Urine Glucose NL Norm Urine Ketones NL Neg Urobilinogen NL Norm Urine Bilirubin NL Neg Urine Blood NL Neg Specific [place] N/A Low 1.01-1.02 Laboratory test finding 08/27/2006 FSH 5.52 MIU/ML 21 Lutenizing Hormone 7.4 MIU/ML 22 Urine DIP 08/27/2006 Leukocytes NEG Neg Urine Nitrites 5 High Neg Urine pH NL Low 5-6 Total Protein, Urine NL Neg Urine Glucose NL Norm Urine Ketones NL Neg Urobilinogen NL Norm Urine Bilirubin NL Neg Urine Blood NL Neg Specific [place] N/A Low 1.01-1.02 Comp Metabolic Panel 08/22/2006 One Over Creatinine 1.11 23 Anion Gap 8.0 mmol/L 2-11 23, 24 Albumin/Globulin Ratio 1.3 1-3 23 Albumin 3.8 GM/DL 3.6-5.4 23 Alkaline Phosphatase 61 U/L 30-110 23 Alt (SGPT) 32 U/L 14-54 23 Ast (Sgot) 27 U/L 12-42 23 BUN 5 mg/dL Low 6-24 23 Calcium 8.5 mg/dL Low 8.7-10.2 23 Chloride 103 mmol/L 101-111 23 Co2 (Carbon Dioxide) 29.0 mmol/L 22-32 23 Globulin 2.9 GM/DL 2-4 23 Glucose 95 mg/dL 70-105 23 Potassium 4.3 mmol/L 3.5-5.0 23 Sodium 140 mmol/L 135-145 23 Bilirubin Total 0.6 mg/dL 0.4-1.5 23 Total Protein 6.7 GM/DL 6.2-8.1 23 BUN/Creatinine Ratio 5.6 Low 8-20 23 Creatinine 0.9 mg/dL 0.5-1.4 23 Lipid Profile 08/22/2006 Cholesterol/HDL Ratio 5.81 AVERAGE High 1-4.44 23 (Trig/Chol/HDL) Cholesterol 209 mg/dL High Less Than 200 23, 25 Triglyceride 128 mg/dL 40-200 23 High Density Lipoprotein 36 mg/dL Low 40-60 23, 26 Low Density Lipoprotein 147 mg/dL High Less Than 100 23, 27 CBC With Electronic Diff 08/22/2006 White Blood Count 6.3 CUMM 4.8-10.8 23 Abs Basophils 0 0-0.2 23 Abs Eosinophils 0.2 0-0.6 23 Absolute Neutrophil Count 3.5 1.5-7.7 23 Abs Lymphs 2.0 1.0-4.8 23 Abs Mononuclear 0.5 0-0.8 23 Basophil % 0.5 % 0-2 23 Hematocrit 39 % 35-47 23 Hemoglobin 13.7 g/dL 12.0-16.0 23 Eosinophil % 3.2 % 0-6 23 Gran % 56.4 % 38-83 23 Lymph % 32.3 % 20-45 23 Mean Corpuscular HGB Cone 35 g/dL 32-36 23 Mean Corpuscular Hemoglob 31 pg 27-31 23 Mean Corpuscular Volume 91 um3 79-97 23 Mean Platelet Volume 10.1 um3 7.4-10.4 23 Mononuclear % 7.6 % 1-9 23 Platelet Count 224 CUMM 150-450 23 Red Cell Count 4.36 CUMM 4.2-5.4 23 Redcell Distribution WDTH 13 % 10.5-15 23 Laboratory test finding 08/22/2006 TSH 1.34 MIU/ML 0.34-5.60 23 Basic Metabolic Panel Stat 08/26/2005 One Over Creatinine 1.25 Anion Gap 5.0 mmol/L 2-11 28 BUN 7 mg/dL 6-24 Calcium 8.2 mg/dL Low 8.7-10.2 Chloride 102 mmol/L 101-111 Co2 (Carbon Dioxide) 30.0 mmol/L 22-32 Glucose 107 mg/dL High 70-105 Potassium 3.5 mmol/L 3.5-5.0 Sodium 137 mmol/L 135-145 BUN/Creatinine Ratio 8.8 8-20 Creatinine 0.8 mg/dL 0.5-1.4 CBC With Manual Diff 08/26/2005 White Blood Count 13.1 CUMM High 4.8-10.8 Absolute Neutrophil Count 10.0 Anisocytosis SLIGHT Band Neutrophil 4 % 0-8 Hematocrit 35 % 35-47 Hemoglobin 12.2 g/dL 12.0-16.0 Lymphocyte 18 % 5-47 Mean Corpuscular HGB Cone 34 g/dL 32-36 Mean Corpuscular Hemoglob 31 pg 27-31 Mean Corpuscular Volume 91 um3 79-97 Monocyte 5 % 0-13 Mean Platelet Volume 10.1 um3 7.4-10.4 Platelet Count 199 CUMM 150-450 Polysegmented Neutrophil 73 % 38-83 Red Cell Count 3.88 CUMM Low 4.2-5.4 Redcell Distribution WDTH 14 % 10.5-15 Laboratory test 08/26/2005 Rapid Strep A [facility] 29 finding <SEE NOTE> CBC With Manual Diff 08/25/2005 White Blood 18.2 CUMM High 4.8-10.8 Stat Count Absolute Neutrophil Count 15.8 Anisocytosis SLIGHT Band Neutrophil 6 % 0-8 Hematocrit 40 % 35-47 Hemoglobin 13.9 g/dL 12.0-16.0 Lymphocyte 7 % 5-47 Mean Corpuscular HGB Cone 34 g/dL 32-36 Mean Corpuscular Hemoglob 31 pg 27-31 Mean Corpuscular Volume 91 um3 79-97 Monocyte 6 % 0-13 Mean Platelet Volume 11.3 um3 High 7.4-10.4 Platelet Count 222 CUMM 150-450 Polychromasia SLIGHT Polysegmented Neutrophil 81 % 38-83 Red Cell Count 4.44 CUMM 4.2-5.4 Redcell Distribution WDTH 13 % 10.5-15 CBC With Manual Diff 08/25/2005 RBC Morphology NORMAL White Blood Count 15.8 CUMM High 4.8-10.8 Hematocrit 43 % 35-47 Hemoglobin 15.0 g/dL 12.0-16.0 Mean Corpuscular HGB Cone 35 g/dL 32-36 Mean Corpuscular Hemoglob 32 pg High 27-31 Mean Corpuscular Volume 91 um3 79-97 Mean Platelet Volume 9.6 um3 7.4-10.4 Platelet Count 213 CUMM 150-450 Polysegmented Neutrophil 80 % 38-83 Red Cell Count 4.75 CUMM 4.2-5.4 Redcell Distribution WDTH 14 % 10.5-15 Absolute Neutrophil Count 13.7 Atypical Lymph 1 % 0-6 Band Neutrophil 7 % 0-8 Lymphocyte 9 % 5-47 Monocyte 3 % 0-13 Urinalysis W/Microscopic 08/25/2005 Ua Color YELLOW Appearance-Urine HAZY Bilirubin-Ur NEGATIVE Negative Blood-Urine 2+ Negative Epith Cells-Ur MANY Esterase-Urine 2+ Negative Glucose-Urine NEGATIVE Negative Ketones-Urine 2+ Negative Nitrite NEGATIVE Negative PH-Urine 6.5 5-9 Protein-Urine 2+ Negative Iwcsvgoslrag-Hu-FQP NEGATIVE Negative Specific [place]-Ur 1.027 1.010-1.030 Bacteria-Urine 3+ Mucus Urine OCC RBC-Urine 2-5 0-2 WBC-Urine 10-15 0-5 Basic Metabolic Panel Stat 08/25/2005 One Over Creatinine 1.11 Anion Gap 8.0 mmol/L 2-11 30 BUN 6 mg/dL 6-24 Calcium 8.9 mg/dL 8.7-10.2 Chloride 101 mmol/L 101-111 Co2 (Carbon Dioxide) 27.0 mmol/L 22-32 Glucose 122 mg/dL High 70-105 Potassium 3.8 mmol/L 3.5-5.0 Sodium 136 mmol/L 135-145 BUN/Creatinine Ratio 6.7 Low 8-20 Creatinine 0.9 mg/dL 0.5-1.4 Urine Culture And 08/25/2005 Urine Culture SPECIMEN CONTAIN 31 Sensitivites Sensitivi <SEE NOTE> Lipid Profile 05/24/2005 Cholesterol/HDL 4.61 AVERAGE High 1-4.44 23 (Trig/Chol/HDL) Ratio Cholesterol 212 mg/dL High Less Than 200 23, 32 Triglyceride 93 mg/dL 40-200 23 High Density Lipoprotein 46 mg/dL 40-60 23 Low Density Lipoprotein 147 mg/dL High Less Than 100 23, 33 Cytology 05/12/2005 Cytology Run: 05/16/05 08 34 <SEE NOTE> Laboratory test finding 11/15/2004 Surgical Pathology RT UPPER THIGH Urine DIP 05/09/2004 Leukocytes NEG Neg Urine Nitrites NEG Neg Urine pH 5 5-6 Total Protein, Urine NL Neg Urine Glucose NL Norm Urine Ketones NL Neg Urobolinogen NL Norm Urine Bilirubin NL Neg Urine Blood NL Neg Specific [place] N/A Low 1.01-1.02 Laboratory test finding 05/09/2004 Thin Layer Pap W/Reflex REC'D-SEE IMAGE To HPV For ASCUS Urine DIP 02/11/2003 Leukocytes NEG Neg Urine Nitrites NEG Neg Urine pH 5 5-6 Total Protein, Urine NEG Neg Urine Glucose NORM Norm Urine Ketones NEG Neg Urobolinogen NORM Norm Urine Bilirubin NEG Neg Urine Blood NEG Neg Specific [place] NA Low 1.01-1.02 Laboratory test 02/11/2003 Thin Layer Pap Test REC'D-SEE IMAGE finding Only Laboratory test 11/12/2002 Oximetry - Single 98% finding Study Xray 10/08/2002 Spine, Lumbosacral, CLOSE PER SA 2 Or 3 Views Laboratory test 07/09/2002 HCG DIP Test NEG Neg finding Laboratory test 03/27/2002 TSH 1.52 MIU/ML 0.34-5.60 finding Laboratory test 02/06/2002 Pap Smear REC'D-SEE IMAGE finding Lipid Profile 02/06/2002 Cholesterol/HDL 4.65 AVERAGE High 1-4.44 (Trig/Chol/HDL) Ratio Cholesterol 186 mg/dL Less Than 200 35 Triglyceride 107 mg/dL 40-200 High Density Lipoprotein 40 mg/dL 40-60 Low Density Lipoprotein 125 mg/dL High Less Than 100 36 Comp Metabolic Panel 02/06/2002 Albumin/Globulin Ratio 1.1 1-3 Albumin 4.0 GM/DL 3.6-5.4 Alkaline Phosphatase 68 U/L 30-110 Alt (SGPT) 35 U/L 14-54 Ast (Sgot) 28 U/L 12-42 BUN 8 mg/dL 6-24 Calcium 9.1 mg/dL 8.7-10.2 Chloride 101 mmol/L 101-111 Co2 (Carbon Dioxide) 31.0 mmol/L 22-32 Creatinine 0.8 mg/dL 0.5-1.4 Globulin 3.8 GM/DL 2-4 Glucose 91 mg/dL 70-105 Potassium 4.8 mmol/L 3.5-5.0 Sodium 136 mmol/L 135-145 Bilirubin Total 1.1 mg/dL 0.4-1.5 Total Protein 7.8 GM/DL 6.2-8.1 BUN/Creatinine Ratio 10.0 8-20 CBC With Electronic Diff 02/06/2002 Platelet Count 256 CUMM 150-450 White Blood Count 8.7 CUMM 4.8-10.8 Abs Basophils 0.1 0-0.2 Abs Eosinophils 0.2 0-0.6 Abs Grans 5.4 1.5-7.7 Abs Lymphs 2.3 1.0-4.8 Abs Mononuclear 0.7 0-0.8 Basophil % 0.6 % 0-2 Hematocrit 41 % 35-47 Hemoglobin 13.7 g/dL 12.0-16.0 Eosinophil % 2.3 % 0-6 Gran % 62.0 % 38-83 Lymph % 27.0 % 20-45 Mean Corpuscular HGB Cone 33 g/dL 32-36 Mean Corpuscular Hemoglob 31 pg 27-31 Mean Corpuscular Volume 93 um3 79-97 Mean Platelet Volume 10.2 um3 7.4-10.4 Mononuclear % 8.1 % 1-9 Red Cell Count 4.46 CUMM 4.2-5.4 Redcell Distribution WDTH 13 % 10.5-15 1 SEE RESULT BELOW Name: ALISHA LUNA : [address]: Kendy Syed DO Acct: [id number] Unit: [id number] AGE: 52 Location: ENDO Re06/21/17 SEX: F Status: REG REF SPEC: [id number] GELY: 06/21/17-[address]: Kendy Syed DO REQ: [id number] RECD: 06/21/17-5714 STATUS: DANILO EAGLE DR: Dimas Saenz MD _ ORDERED: LEVEL 4 FINAL DIAGNOSIS Colon, rectum, biopsy: -- Hyperplastic polyps. CLINICAL HISTORY Screening/Surveillance for malignancy in asymptomatic patient. POST-OPERATIVE DIAGNOSIS Three 5 mm rectal polyps; scattered sigmoid diverticulosis; internal hemorrhoids. Conclusions/Plan: 5 or 10 years depending on pathology GROSS DESCRIPTION The specimen is received in formalin labeled, Biopsy Rectal Polyps, and consists of a 0.7 x 0.5 x 0.2 cm aggregate of anaya-pink irregular soft tissue fragments which is submitted entirely in one cassette. Signed (signature on file) Aranza Gerber MD 1030 END OF REPORT DEPARTMENT OF PATHOLOGY, [address] [place] [address] Jose Hernández M.D. Director [facility] # [id number] 2 [id number] SEE RESULT BELOW Name: ALISHA LUNA : [address]: Nicolasa Vera NP Acct: [id number] Unit: [id number] AGE: 51 Location: [facility] Re01/11/17 SEX: F Status: REG REF SPEC: [id number] GELY: 01/11/[address] [facility] [address]: Georgiana Lane MD REQ: [id number] RECD: 01/11/17 STATUS: DANILO EAGLE DR: Dimas Vera PROPERTY MANAGEMENT ACCOUNTANT _ ORDERED: LEVEL 4 COMMENTS: [id number] FINAL DIAGNOSIS Breast, left, core biopsies: -- Myeloid hamartoma of breast. See comment. -- No evidence of malignancy identified. Comment: These findings represent an unusual nonneoplastic lesion of breast characterized by dense fibrous tissue, interspersed smooth muscle bundles and a few ductal elements. Fragments of adipose tissue are also present. Hamartomas typically present as solitary circumscribed nodule in the breast. Correlation with imaging findings suggested. PRE-OPERATIVE DIAGNOSIS Consisting Left breast mass at 9 o'clock 2 cm. from nipple 1.4 x 0.6 x 1.0 cm. GROSS DESCRIPTION The specimen is received in formalin labeled, Left Breast Core Biopsies, and consists of a 0.7 x 0.7 x 0.2 cm aggregate of yellow-white fibrofatty soft tissue fragments , which is filtered and entirely submitted in one cassette. Signed (signature on file) Jose Hernández MD 0920 END OF REPORT * ML=Testing performed at Main Lab DEPARTMENT OF PATHOLOGY, [address] [place] [address] Jose Hernández M.D. Director [facility] # [id number] 4 Desirable <150 Borderline high 150-199 High 200-499 Very High >500 5 Desirable <200 Borderline high 200-239 High >239 6 Low <40 Desirable: 40-60 High: >60 7 Desirable: <100 mg/dL Near Optimal: 100-129 mg/dL Borderline High: 130-159 mg/dL High: 160-189 mg/dL Very High: >189 mg/dL 8 Because ethnic data is not always readily available, this report includes an eGFR for both -Americans and non- Americans. The National Kidney Disease Education Program (NKDEP) does not endorse the use of the MDRD equation for patients that are not between the ages of 18 and 70, are , have extremes of body size, muscle mass, or nutritional status, or are non- or non-. According to the National Kidney Foundation, irrespective of diagnosis, the stage of the disease is based on the level of kidney function: Stage Description GFR(mL/min/1.73 m(2)) 1 Kidney damage with normal or decreased GFR 90 2 Kidney damage with mild decrease in GFR 60-89 3 Moderate decrease in GFR 30-59 4 Severe decrease in GFR 15-29 5 Kidney failure <15 (or dialysis) 9 Because ethnic data is not always readily available, this report includes an eGFR for both -Americans and non- Americans. The National Kidney Disease Education Program (NKDEP) does not endorse the use of the MDRD equation for patients that are not between the ages of 18 and 70, are , have extremes of body size, muscle mass, or nutritional status, or are non- or non-. According to the National Kidney Foundation, irrespective of diagnosis, the stage of the disease is based on the level of kidney function: Stage Description GFR(mL/min/1.73 m(2)) 1 Kidney damage with normal or decreased GFR 90 2 Kidney damage with mild decrease in GFR 60-89 3 Moderate decrease in GFR 30-59 4 Severe decrease in GFR 15-29 5 Kidney failure <15 (or dialysis) 10 Acute inflammation: >10.00 11 -- REFERENCE VALUE -- 25-HYDROXY D TOTAL (D2+D3) Optimum levels in the healthy population are 20-50, patients with bone disease may benefit from higher levels within this range. Test Performed by: [place] [address] Forensic Manager: Dez Wong III, M.D. 12 Acute inflammation: >10.00 13 Normal Range 180 to 914 Indeterminate Range 145 to 180 Deficient Range <145 14 No bands detected 15 Specific serologic response to B. burgdorferi infection is not detected, but cannot rule out early infection during which low or undetectable antibody levels to B. burgdorferi may be present. If clinically indicated, a new serum specimen should be submitted in 7-14 days. CDC criteria require >=5 bands for IgG or >=2 bands for IgM for the Immunoblot to be considered positive. Bands (e.g.,p41) may be detected in patients without Lyme disease, and patterns not meeting the CDC criteria should be interpreted with caution. Immunoblot should be ordered only on specimens that are positive or equivocal by a FDA-licensed Lyme disease antibody screening test (e.g., EIA). Test Performed by: [place] [address] Forensic Manager: Dez Wong III, M.D. 16 Test Performed by: [place] [address] Forensic Manager: Dez Wong III, M.D. 17 HDL Interpretation: Undesirable: High Risk: Less than 40 mg/dL Desirable: Low Risk: Greater than 60 mg/dL 18 LDL Interpretation: Low Risk Optimal Level: LDL Less than 100 mg/dL Near or Above Optimal: LDL 100-129 mg/dL Borderline High Risk: LDL 130-159 mg/dL High Risk: LDL 160-189 mg/dL Very High Risk: LDL Greater than 189 mg/dL 19 Test Performed by: [place] [address] Forensic Manager: Dez Wong III, M.D. 20 SPECIMEN CONTAINS NORMAL URETHRAL OR PERINEAL LUIS AND DOES NOT SUGGEST URINARY TRACT INFECTION 25^10-25,000 ORGANISMS/ML (MODERATE)^CCU 21 NORMAL RANGE MALES 1 - 20 NORMALLY MENSTRUATING FEMALES - Follicular Phase 3 - 9 - Mid-Cycle Peak 4 - 23 - Luteal Phase 1 - 6 POSTMENOPAUSAL FEMALES 16 - 114 . 22 NORMAL RANGE MALES 2 - 12 NORMALLY MENSTRUATING FEMALES - Follicular Phase 1 - 18 - Mid-Cycle Peak 24 - 105 - Luteal Phase 0.6 - 20 POSTMENOPAUSAL FEMALES 15 - 62 . 23 FASTING 24 Anion gap measurement may be of limited value in the presence of any alkalosis, especially in a combined acid base disorder. . 25 Classification: Borderline High . 26 Classification: Low . 27 CALCULATED LDL APPROXIMATES THE VALUE OF A DIRECT LDL MEASUREMENT. Classification: Borderline High . 28 Anion gap measurement may be of limited value in the presence of any alkalosis, especially in a combined acid base disorder. . 29 THE [place] [employer] RECOMMENDS THAT A THROAT CULTURE SHOULD BE PERFORMED IF A RAPID GROUP A STREP ASSAY YIELDS A NEGATIVE RESULT. P^POSITIVE FOR GROUP A STREP BY ENZYME IMMUNOASSAY^STREPA 30 Anion gap measurement may be of limited value in the presence of any alkalosis, especially in a combined acid base disorder. . 31 SPECIMEN CONTAINS NORMAL URETHRAL OR PERINEAL LUIS AND DOES NOT SUGGEST URINARY TRACT INFECTION 100^75-100,000 ORGANISMS/ML (MANY)^CCU 32 Classification: Borderline High . 33 CALCULATED LDL APPROXIMATES THE VALUE OF A DIRECT LDL MEASUREMENT. Classification: Borderline High . 34 Run: 05/16/05 0824 LIS Specimen Inquiry Run User: INTERFACE -- Name: GABO GODFREY Age/Sex: 40/F Location: [facility]#: [id number] Unit#: [id number] Status: REG REF Room/Bed: Re05/12/05 Disch: Att Dr: Viridiana Ledesma MD. -- Spec #: [id number] Recd: 05/12/051357 Status: [facility] Req #: [id number] SpType: CYTOLOGY Sub Dr: Viridiana Ledesma MD. ADEQUACY OF SPECIMEN Satisfactory for evaluation * Transformation zone component identified * DIAGNOSIS NEGATIVE FOR INTRAEPITHELIAL LESION OR MALIGNANCY * Reactive cellular changes associated with * Inflammation (includes typical repair) * SOURCE No source given - Thin Prep with reflex HPV test The Pap Smear is a screening test designed to aid in the detection of premalign ant and malignant conditions of the uterine cervix. It is not a diagnostic procedure an d should not be used as the sole means of detecting cervical cancer. Both false-positive and false-negative reports do occur. Depending on your risk status, a Pap smear winifred uld be obtained and evaluated every one to three years. PATIENT INFORMATION ACTUAL COLLECTION DATE: 05/11/05 LAST MENSTRUAL PERIOD: 04/27/05 DATE OF PRIOR SPECIMEN: 05/09/04 -- Signed Radha MTZ([facility]) 05/16/05 GEORGIANA DE SOUZA MD 05/16/05 -- END OF REPORT 35 Classification: Desirable . 36 CALCULATED LDL APPROXIMATES THE VALUE OF A DIRECT LDL MEASUREMENT. Classification: Near or above optimal . Procedures Date CPT Code Description Status Comment 06/21/2017 Colonoscopy Completed hyperplastic polyp, scattered diverticulosis, internal hemorrhoids suggested repeat in 10 years- 202701/22/2014 26884 Nebulizer Treatment Completed 11/15/2004 47176 Excision Benign Lesion 1.1 Completed To 2.0 CM 07/11/2004 47134 Nebulizer Treatment Completed 11/12/2002 87816 Oximetry - Single Study Completed 11/12/2002 01127 Nebulizer Treatment Completed Encounters Type Date Location Provider CPT E/M Dx Office Visit 05/31/2017 2:45p [place] [address] M25.552 M43.00 Z12.11 Office Visit 11/23/2016 1:30p [place] [address] J04.10 Office Visit 11/21/2016 1:30p Main Office Guerrero Felix III, [facility] [employer] 43940 Z00.00 Z12.31 Z23 Z11.1 Office Visit 05/09/2016 3:00p Main Office Guerrero Felix III, [facility] 76742 J20.9 Office Visit 12/10/2015 11:30a [place] [address] M54.31 Z23 Office Visit 11/17/2015 9:30a [place] [address] M54.31 Office Visit 08/20/2015 1:45p [place] [address] M54.5 Office Visit 05/24/2015 2:00p [place] [address] J01.90 Office Visit 02/17/2015 4:15p [place] [address] J20.9 Office Visit 01/04/2015 2:30p Main Office Opal Winters [facility] 70012 J30.9 M54.31 M54.5 Office Visit 11/13/2014 11:45a Main Office Nicolasa Vera [facility] 89268 727.3 719.68 454.1 Office Visit 09/22/2014 11:45a Main Office Nicolasa Vera [facility] 82613 918.1 Office Visit 2014 11:15a Main Office Altagracia Herrera M.D. 87435 519.11 465.8 Office Visit 01/19/2014 10:00a Main Office Altagracia Herrera M.D. 71694 519.11 Office Visit 10/24/2013 3:15p Main Office Altagracia Herrera M.D. 08678 715.09 Office Visit 05/02/2013 2:00p Main Office Altagracia Herrera M.D. 79058 V70.0 715.09 300.00 314.00 530.81 305.1 454.8 V04.81 Office Visit 01/24/2007 4:00p Main Office Opal Winters [facility] 23340 V04.81 214.9 Office Visit 10/30/2006 8:45a Main Office Pranay RappN.P.CMynor 97321 789.00 300.00 724.5 Office Visit 09/25/2006 1:00p Main Office Kathleen Rapp.N.P.CMynor 79977 788.41 Office Visit 08/27/2006 1:30p Main Office Zoila Catalan F.N.P.C. 89898 V70.0 695.3 626.4 625.4 278.00 Office Visit 04/26/2006 11:30a Main Office Nirmala Farmer M.D. 29588 466.0 Office Visit 01/23/2006 12:15p Main Office Viridiana Ledesma M.D. 75710 723.1 278.00 Office Visit 08/28/2005 12:30p Main Office Viridiana Ledesma M.D. 71089 034.0 785.6 787.02 Office Visit 05/11/2005 8:15a Main Office Viridiana Ledesma M.D. 03659 V72.31 Office Visit 03/29/2005 2:00p Main Office Jovani Mehta M.D. 83525 451.0 Office Visit 11/23/2004 4:15p Main Office Viridiana Ledesma M.D. 76653 V58.3 Office Visit 10/26/2004 1:30p Main Office Viridiana Ledesma M.D. 19896 216.7 729.4 448.1 Office Visit 08/30/2004 10:45a Main Office Viridiana Ledesma M.D. 92425 729.4 726.73 278.00 Office Visit 07/11/2004 12:30p Main Office Zoila Catalan F.N.P.CMynor 12355 465.9 Office Visit 05/09/2004 9:00a Main Office Viridiana Ledesma M.D. 40118 V72.31 V70.0 272.0 V76.47 Office Visit 11/14/2003 9:45a Main Office Nicolasa Rocha M.D. 53126 462 Office Visit 07/07/2003 9:15a Main Office Viridiana Ledesma M.D. 40449 726.19 611.72 524.60 Office Visit 02/11/2003 12:45p Main Office Viridiana Ledesma M.D. 59613 V70.0 626.2 611.8 V04.8 Office Visit 11/12/2002 11:15a Main Office Nirmala Farmer M.D. 21690 466.0 Office Visit 10/08/2002 4:30p Main Office Viridiana Ledesma M.D. 47350 724.2 Office Visit 08/12/2002 11:00a Main Office Viridiana Ledesma M.D. 96378 300.02 278.00 Office Visit 07/09/2002 4:00p Main Office Viridiana Ledesma M.D. 88861 626.0 300.02 Office Visit 06/24/2002 8:45a Main Office Viridiana Ledesma M.D. 85980 300.02 611.72 Office Visit 03/27/2002 11:15a Main Office Viridiana Ledesma M.D. 16963 783.1 V04.8 Office Visit 02/06/2002 9:45a Main Office Viridiana Ledesma M.D. 02159 448.1 V72.3 300.02 724.5 Office Visit 01/28/2002 9:45a Nicolasa Rocha M.D. 00021 786.59 300.02 Office Visit 01/23/2002 4:00p Main Office Viridiana Ledesma M.D. 09769 300.02 786.59 Office Visit 08/19/2001 3:45p Main Office Nicolasa Rocha M.D. 68529 314.01 Plan of Care 08/14/2017 - Aminta Stubbs NPN39.0 Urinary tract infection, site not specifiedNew Medication:Nitrofurantoin Monohyd Macro 100 mgComments:Suspected UTI. Discussed back pain versus flank painDiscussed tx with Cipro versus Macrobid. Patientprefer Macrobid.Will send urine for culture and sensitivity. Will contact pt if antibiotic needs to be changedEducated on new/worsening symptoms and when to call/return. Stated understanding and agreedto plan.
[2017-09-02 16:42] VITALS: BP 129/80
--- NOTE | 2017-09-02 17:02 | UC ---
Respiratory Complaint HPI - HPI Summary HPI Summary: She is pleasant 52 year old female who presents today with cough for past 10 days. 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 But she continued to have cough. She denies any fevers or any other symptoms. She does smoke daily but had quit for 20 years and recently started again , trying to quit now.Denies any nausea, vomiting , diarrhea , denies any chest pain or shortness of breath . She does feel that hher son had some upper respiratory viral infection when her symptoms started. - History of Current Complaint Chief Complaint: UCRespiratory Stated Complaint: COUGH Time Seen by Provider: 09/02/17 16:48 Hx Obtained From: Patient Hx Last Menstrual Period: 08/21/17 ?: No Onset/Duration: Sudden Onset, Lasting Days Timing: Constant Severity Initially: Mild Severity Currently: Moderate Pain Intensity: 0 - denies any pain Pain Scale Used: 0-10 Numeric Character: Cough: Productive - produced some phlegm yesterday Alleviating Factors: OTC Meds - some relief, Nothing Associated Signs And Symptoms: Negative: Dyspnea, Fever, Chills, Pleuritic Chest Pain, Wheezing, Hemoptysis, Edema, URI, Nasal Congestion, Hoarseness, Sinus Discomfort Related History: Seasonal Allergies - Risk Factors Pulmonary Embolism Risk Factors: Negative Cardiac Risk Factors: Negative Pseudomonas Risk Factors: Negative Tuberculosis Risk Factors: Negative - Allergies/Home Medications Allergies/Adverse Reactions: Allergies Allergy/AdvReac Type Severity Reaction Status Date / Time Adhesive Tape Allergy Rash Verified 09/02/17 16:43 codeine Allergy Muscle Ache Verified 09/02/17 16:43 latex Allergy Rash Verified 09/02/17 16:43 percocet Allergy Anxiety Uncoded 09/02/17 16:43 PMH/Surg Hx/FS Hx/Imm Hx Previously Healthy: Yes Other Endocrine History: negative Other Cardiovascular History: negative Respiratory History: Other - history of smoking but no COPD Other Respiratory History: negative Other GI/ History: negative Other Neurological History: negative Psychological History: Anxiety, Other - ADHD Other Psychological History: takes zoloft and strattera Other Cancer History: negative - Surgical History Surgical History: Yes Surgery Procedure, Year, and Place: Disc surgery 2016. REMOVAL OF BUMP BEHIND LEFT EAR benign, breast reduction 2009,childbirth 1995 and 1998,gall bladder 1999 - Social History Alcohol Use: Occasionally Alcohol Amount: 1 month Substance Use Type: None Substance Use Comment - Amount & Last Used: 3-4 cups per day Smoking Status (MU): Light Every Day Tobacco Smoker Type: Cigarettes Amount Used/How Often: 5 cigg/day Have You Smoked in the Last Year: Yes When Did the Patient Quit Smoking/Using Tobacco: 05/22/16 Review of Systems Skin: Negative Eyes: Negative ENT: Negative Respiratory: Cough - productive of phlegm Cardiovascular: Negative Gastrointestinal: Negative Genitourinary: Negative Motor: Negative Neurovascular: Negative Musculoskeletal: Negative Neurological: Negative Psychological: Anxious - Controlled on zoloft, Other - ADHD controlled on Strattera Is Patient Immunocompromised?: No All Other Systems Reviewed And Are Negative: Yes Physical Exam Triage Information Reviewed: Yes Appearance: Well-Appearing, No Pain Distress Vital Signs: Initial Vital Signs Temp 98.4 F 09/02/17 16:35 Pulse 85 09/02/17 16:35 Resp 16 09/02/17 16:35 BP 129/80 09/02/17 16:35 Pulse Ox 100 09/02/17 16:35 Vital Signs Reviewed: Yes Eye Exam: Normal Eyes: Positive: Conjunctiva Clear ENT: Positive: Hearing grossly normal, Pharynx normal, TMs normal, Uvula midline. Negative: Pharyngeal erythema, Nasal congestion, Nasal drainage, Trismus, Muffled voice, Hoarse voice Neck exam: Normal Neck: Positive: Supple, Nontender, No Lymphadenopathy Respiratory: Positive: Lungs clear - air entry equal bilateraaly, Rhonchi - on right side. Negative: Decreased breath sounds, Accessory muscle use, Crackles, Wheezing Cardiovascular: Positive: RRR, No Murmur, Pulses Normal, Brisk Capillary Refill Abdominal Exam: Normal Abdomen Description: Positive: Nontender, Soft. Negative: CVA Tenderness (L), Distended, Guarding Bowel Sounds: Positive: Present Neurological Exam: Normal Neurological: Positive: Alert Psychological Exam: Normal Psychological: Positive: Age Appropriate Behavior Skin Exam: Normal Skin: Negative: rashes UC Diagnostic Evaluation - Laboratory O2 Sat by Pulse Oximetry: 100 Respiratory Course/Dx - Course Course Of Treatment: Xray Chest done today is negative for any active pulmonary disease. She likely has a pneumonia but denies having any fever or chills. - Differential Dx/Diagnosis Differential Diagnosis/HQI/PQRI: Bronchitis, Lower Resp Infection Provider Diagnoses: Pneumonia Discharge - Sign-Out/Discharge Documenting (check all that apply): Discharge/Admit/Transfer - Discharge Plan Condition: Stable Disposition: HOME Prescriptions: Azithromyxin EMILY (NF) [Z-Emily (Zithromax) 250 mg tabs #6] 2 tab PO .TODAY, THEN 1 DAILY #6 tab Benzonatate CAP* [Tessalon 100 MG CAP*] 100 mg PO TID PRN 10 Days #30 cap PRN Reason: Cough Patient Education Materials: Pneumonia (ED) Referrals: Dimas Saenz MD [Primary Care Provider] - 1 Week Additional Instructions: Symptoms can be secondary to pneumonia. Your X-rays are negative for any pulmonary disease. Start azithromycin for 5 days as prescribed to the pharmacy [facility] for cough suppression up to 3 times/ day . Follow up with you Primary doctor in 1 week, return to ER with worsening of symptoms - Billing Disposition and Condition Condition: STABLE Disposition: HOME
--- NOTE | 2017-09-02 17:30 | RAD ---
INDICATION: Short of breath COMPARISON: June 03, 2016 TECHNIQUE: PA and lateral dual-energy views were obtained. FINDINGS: Bones/Soft Tissues: There are no acute bony findings. There is a mild scoliotic deformity. Cardiomediastinal: The cardiomediastinal silhouette is normal. Lungs: There are no infiltrates. Pleura: There are no pleural effusions. Other: None IMPRESSION: NO ACTIVE DISEASE.
[2017-09-02] MEDS ORDERED: Azithromycin TAB* 250 MG PO ONE (17:43)
== END 2017-09-02 17:40 | disposition home or self-care (01) ==
LOC: UCEAST 15:58
DX: J18.9 Pneumonia, unspecified organism (principal); F90.9 Attention-deficit hyperactivity disorder, unspecified type; F41.9 Anxiety disorder, unspecified; Z91.040 Latex allergy status; Z88.5 Allergy status to narcotic agent; Z91.048 Other nonmedicinal substance allergy status; Z87.891 Personal history of nicotine dependence
CPT/HCPCS: 71046; 99201; A9270-GY; G0463

== ENCOUNTER → 2018-06-18 15:27 | Emergency (ER) | payer OTHER ==
[~2018-06-18 15:27] MED LIST: Aspirin 81 mg CHEW TAB* 81 MG TAB.CHEW PO ONE; Cyclobenzaprine TAB* 10 MG PO ONE; Diazepam TAB(*) 5 MG PO ONE; Iohexol 350* (CONTRAST) 500 ML MDV IV ONE; Ondansetron INJ* 2 MG/ML VIAL IV ONE
--- NOTE | 2018-06-18 15:55 | ED ---
HPI Chest Pain - HPI Summary HPI Summary: Patient is a 53 y/o female who presents to the ED c/o CP. Shes had intermittent CP for the past two weeks, described as a phantom feeling. Last night she suddenly began to have sharp left anterior CP, rated an 8/10 in severity. The pain radiates to her back and is made worse with exertion. She also c/o insomnia, fatigue, nausea, dry mouth, and diaphoresis. Patient denies any abdominal pain, vomiting, LE edema, fever, or chills. Patient initially thought it was an issue with her left shoulder, since she has a hx of muscular shoulder problems. She is mildly tachycardic in the room with a rate of 102 bpm. - History of Current Complaint Chief Complaint: EDChestPainROMI Time Seen by Provider: 06/18/18 15:34 Hx Obtained From: Patient Hx Last Menstrual Period: 08/21/17 Onset/Duration: Started Weeks Ago - 2, Still Present Timing: Intermittent Current Severity: Severe Pain Intensity: 8 Pain Scale Used: 0-10 Numeric Chest Pain Location: Left Anterior Chest Pain Radiates: Yes Chest Pain Radiates To:: Back Character: Sharp/Stabbing, Other: - "phantom" Aggravating Factor(s): Exertion Alleviating Factor(s): Nothing Associated Signs and Symptoms: Positive: Chest Pain, Nausea, Back Pain. Negative: Vomiting - Additional Pertinent History Primary Care Physician: [id number] - Allergy/Home Medications Allergies/Adverse Reactions: Allergies Allergy/AdvReac Type Severity Reaction Status Date / Time Adhesive Tape Allergy Rash Verified 06/18/18 15:32 codeine Allergy Muscle Ache Verified 06/18/18 15:32 latex Allergy Rash Verified 06/18/18 15:32 percocet Allergy Anxiety Uncoded 06/18/18 15:32 Home Medications: Home Medications QUEtiapine TAB* [Seroquel 25 MG TAB*] 25 mg PO DAILY PRN 06/18/18 [History Confirmed 06/18/18] PMH/Surg Hx/FS Hx/Imm Hx Cardiovascular History: Denies: Hx Pacemaker/ICD GI History: Reports: Hx Gastroesophageal Reflux Disease - controls with diet modification, Hx Irritable Bowel - controls with diet modification Musculoskeletal History: Reports: Hx Arthritis - knees, shoulders, hands, feet, hips, Other Musculoskeletal History - shoulder problems Sensory History: Reports: Hx Contacts or Glasses - wears glasses Denies: Hx Hearing Aid Opthamlomology History: Reports: Hx Contacts or Glasses - wears glasses Psychiatric History: Reports: Hx Anxiety, Hx Attention Deficit Hyperactivity Disorder, Hx Depression Denies: Hx Panic Disorder - Cancer History Hx Chemotherapy: No Hx Radiation Therapy: No - Surgical History Surgery Procedure, Year, and Place: Disc surgery 2017. REMOVAL OF BUMP BEHIND LEFT EAR benign, breast reduction 2009,childbirth 1995 and 1998,gall bladder 1999 Hx Anesthesia Reactions: No Infectious Disease History: No Infectious Disease History: Denies: Traveled Outside the [place] in Last 30 Days - Family History Known Family History: Negative: Diabetes - Social History Alcohol Use: None Alcohol Amount: 1 month Hx Substance Use: Yes Substance Use Type: Reports: None Substance Use Comment - Amount & Last Used: 3-4 cups per day Hx Tobacco Use: Yes Smoking Status (MU): Light Every Day Tobacco Smoker Type: Cigarettes Amount Used/How Often: 5 cigg/day Have You Smoked in the Last Year: Yes Review of Systems Positive: Fatigue, Skin Diaphoresis, Other - dry mouth, insomnia. Negative: Fever, Chills Positive: Chest Pain - radiates to back Positive: Nausea. Negative: Abdominal Pain, Vomiting Positive: Arthralgia - left shoulder. Negative: Edema - LE All Other Systems Reviewed And Are Negative: Yes Physical Exam - Summary Physical Exam Summary: Constitutional: Well-developed, Well-nourished, Alert. (-) Distressed Skin: Warm, Dry HENT: Normocephalic; Atraumatic Eyes: Conjunctiva normal Neck: Musculoskeletal ROM normal neck. (-) JVD, (-) Stridor, (-) Tracheal deviation Cardio: Rhythm regular, rate normal, Heart sounds normal; Intact distal pulses; The pedal pulses are 2+ and symmetric. Radial pulses are 2+ and symmetric. (-) Murmur Pulmonary/Chest wall: Effort normal. (-) Respiratory distress, (-) Wheezes, (-) Rales Abd: Soft, (-) tenderness, (-) Distension, (-) Guarding, (-) Rebound Musculoskeletal: (-) Edema, (+) Mild tenderness to palpation of posterior left shoulder Lymph: (-) Cervical adenopathy Neuro: Alert, Oriented x3 Psych: Mood and affect Normal Triage Information Reviewed: Yes Vital Signs On Initial Exam: Initial Vitals Temp Pulse Resp BP Pulse Ox 96.8 F 114 19 142/100 99 06/18/18 15:29 06/18/18 15:29 06/18/18 15:29 06/18/18 15:29 06/18/18 15:29 Vital Signs Reviewed: Yes Diagnostics - Vital Signs Vital Signs Temp Pulse Resp BP Pulse Ox 06/18/18 15:45 101 21 175/122 96 06/18/18 15:43 20 06/18/18 15:29 96.8 F 114 19 142/100 99 - Laboratory Result Diagrams: 06/18/18 15:58 06/18/18 15:58 Lab Statement: Any lab studies that have been ordered have been reviewed, and results considered in the medical decision making process. - Radiology CXR Radiology Interpretation Completed By: Radiologist Summary of Radiographic Findings: NO EVIDENCE FOR ACUTE DISEASE. ED physician reviewed radiology report. - EKG 15:38 Cardiac Rate: NL - 99 bpm EKG Rhythm: Sinus Rhythm ST Segment: Normal Summary of EKG Findings: LAD, normal NE, normal QRS, normal QTc, normal T-waves , non-specific EKG. Re-Evaluation - Re-Evaluation First Eval Re-Evaluation Time: 20:40 Change: Unchanged Comment: Pt still has chest discomfort. Chest Pain Course/Dx - Course Course Of Treatment: 53 y/o female with CP radiating to back. the patient's troponins were negative x3. on second re-evaluation, she continued to have discomfort radiating into her back, so CT was ordered to r/o dissection. That was read by radiology as normal. The third troponin was negative. On re- evaluation of the patient, her pain had resolved. She was discharged home in stable condition and advised to follow-up with her PCP and cardiology. - Diagnoses Provider Diagnoses: Chest pain Discharge - Sign-Out/Discharge Documenting (check all that apply): Patient Departure Patient Received Moderate/Deep Sedation with Procedure: No - Discharge Plan Condition: Good Disposition: HOME Patient Education Materials: Chest Pain (ED) Print Language: BENGALI Referrals: Dimas Saenz MD [Primary Care Provider] - Ibrahima Fountain MD [Medical Doctor] - - Billing Disposition and Condition Condition: GOOD Disposition: Home - Attestation Statements Document Initiated by Scribe: Yes Documenting Scribe: Mildred Murillo Provider For Whom Scribe is Documenting (Include Credential): Ju Silva MD Scribe Attestation: I, Mildred Murillo, scribed for Ju Galindo MD on 06/18/18 at 2222. Scribe Documentation Reviewed: Yes Provider Attestation: The documentation as recorded by the scribeMildred accurately reflects the service I personally performed and the decisions made by me, Ju Silva MD Status of Scribe Document: Viewed
[2018-06-18 16:12] LABS: ABS Basophils 0.1 10^3/ul (0-0.2); ABS Eosinophils 0.5 10^3/ul (0-0.6); ABS Lymphocytes 2.2 10^3/ul (1.0-4.8); ABS Monocytes 0.9 10^3/ul (0-0.8); ABS Nucleated RBC 0 10^3/ul; Eosinophil % 4.4 %; Hematocrit 45 % (35-47); Hemoglobin 14.8 g/dl (12.0-16.0); Lymphocyte % 20.6 %; Mean Corpuscular HGB Conc 33 g/dl (31-36); Mean Corpuscular Hemoglobin 31 pg (27-31); Mean Corpuscular Volume 94 fL (80-97); Mean Platelet Volume 10.5 fL (7.4-10.4); Nucleated Red Blood Cells % 0; Platelet Count 199 10^3/ul (150-450); Red Blood Count 4.77 10^6/ul (4.00-5.40); Red Cell Distribution Width 15 % (10.5-15); White Blood Count 10.6 10^3/ul (3.5-10.8)
[2018-06-18] MEDS: Nitroglycerin TAB 0.4 MG* 0.4 MG TAB SL ONE ×2 (16:13→16:22)
[2018-06-18 16:34] LABS: Albumin 4.2 g/dL (3.2-5.2); Albumin/Globulin Ratio 1.4 (1-3); Calcium 8.9 mg/dL (8.6-10.3); EGFR African American 97.8 (>60); EGFR Non-African American 80.8 (>60); Magnesium 2.2 mg/dL (1.9-2.7); Potassium 4.1 mmol/L (3.5-5.0); Total Bilirubin 0.8 mg/dL (0.2-1.0); Total Protein 7.2 g/dL (6.4-8.9)
[2018-06-18 23:03] VITALS: BP 115/81
== END | disposition home or self-care (01) ==
LOC: ED 15:27
DX: R07.9 Chest pain, unspecified (principal); R11.0 Nausea; M54.9 Dorsalgia, unspecified; K21.9 Gastro-esophageal reflux disease without esophagitis; F90.9 Attention-deficit hyperactivity disorder, unspecified type; F17.210 Nicotine dependence, cigarettes, uncomplicated; R53.83 Other fatigue
CPT/HCPCS: 36415; 71045; 71275; 80053; 83605; 83735; 83880; 84484; 85025; 85379; 93005; 96374; 99284; A9270-GY; J2405; Q9967

== ENCOUNTER 2019-05-25 12:26 | Emergency (ER) | payer SELFPAY ==
[2019-05-25 13:18] VITALS: BP 142/77
[2019-05-25 13:50] LABS: Influenza A Molecular Negative (Negative); Influenza B Molecular Negative (Negative)
--- NOTE | 2019-05-25 14:05 | UC ---
FLU HPI - HPI Summary HPI Summary: 54 year old female presents with complaints of sudden onset of general malaise, fatigue, body aches, nasal congestion, sore throat, shortness of breath, wheezing, and an occasionally productive cough for clear sputum. No measured fever but reports chills. Mild nausea. + smoker. Did not receive flu vaccine this season. Denies ear pain, dysphagia, chest pain, palpitations, abdominal pain, vomiting, or diarrhea. - History of Current Complaint Chief Complaint: UCRespiratory Stated Complaint: COUGH CHEST CONGESTION FEVER Time Seen by Provider: 05/25/19 13:38 Hx Obtained From: Patient Hx Last Menstrual Period: 2 wks ago Pain Intensity: 2 - Allergy/Home Medications Allergies/Adverse Reactions: Allergies Allergy/AdvReac Type Severity Reaction Status Date / Time Adhesive Tape Allergy Rash Verified 05/25/19 13:18 codeine Allergy Muscle Ache Verified 05/25/19 13:18 latex Allergy Rash Verified 05/25/19 13:18 percocet Allergy Anxiety Uncoded 05/25/19 13:18 PMH/Surg Hx/FS Hx/Imm Hx Previously Healthy: Yes - Denies significant PMH - Surgical History Surgical History: Yes Surgery Procedure, Year, and Place: Disc surgery 2017. REMOVAL OF BUMP BEHIND LEFT EAR benign, breast reduction 2009,childbirth 1995 and 1998,gall bladder 1999 - Family History Known Family History: Positive: Non-Contributory - Social History Occupation: Employed Full-time Lives: With Family Alcohol Use: Rare Alcohol Amount: 1 month Substance Use Type: None Substance Use Comment - Amount & Last Used: 3-4 cups per day Smoking Status (MU): Light Every Day Tobacco Smoker Type: Cigarettes Amount Used/How Often: 5 cigg/day Have You Smoked in the Last Year: Yes When Did the Patient Quit Smoking/Using Tobacco: 05/22/16 Review of Systems All Other Systems Reviewed And Are Negative: Yes Constitutional: Positive: Chills, Fatigue Eyes: Negative: Drainage, Eye Redness ENT: Positive: Sore Throat, Nasal Discharge, Sinus Congestion. Negative: Ear Ache, Sinus Pain/Tenderness Respiratory: Positive: Shortness Of Breath, Cough, Other - Wheezing Cardiovascular: Negative: Palpitations, Chest Pain Gastrointestinal: Positive: Nausea. Negative: Abdominal Pain, Vomiting, Diarrhea Genitourinary: Positive: Negative Musculoskeletal: Positive: Myalgia Neurological/Mental Status: Positive: Negative Is Patient Immunocompromised?: No Physical Exam - Summary Physical Exam Summary: GENERAL APPEARANCE: Alert and cooperative obese adult female who appears to be in no acute distress. EYES: Conjunctiva clear. No drainage. EARS: External auditory canals and tympanic membranes clear, hearing grossly intact. NOSE: Moderate nasal congestion. No nasal discharge. THROAT: Pharyngeal erythema. No tonsilar inflammation, swelling, exudate, or lesions. Uvula midline. NECK: Neck supple, non-tender without lymphadenopathy. CARDIAC: Normal S1 and S2. No S3, S4 or murmurs. Rhythm is regular. There is no peripheral edema, cyanosis or pallor. Extremities are warm and well perfused. Capillary refill is less than 2 seconds. Peripheral pulses intact. LUNGS: Mildly diminished breath sounds with diffuse wheezes bilaterally. No rales or rhonchi noted. ABDOMEN: Positive bowel sounds. Soft, nondistended, nontender. No guarding or rebound. No masses or hepatosplenomegally. MUSKULOSKELETAL: ROM intact to all extremities. No joint erythema or tenderness. Normal muscular development. Normal gait. SKIN: Skin normal color, texture and turgor with no lesions or eruptions. Triage Information Reviewed: Yes Vital Signs: Initial Vital Signs Temp 99.0 F 05/25/19 13:15 Pulse 80 05/25/19 13:15 Resp 16 05/25/19 13:15 BP 142/77 05/25/19 13:15 Pulse Ox 97 05/25/19 13:15 Vital Signs Reviewed: Yes Diagnostics - Radiology No standard instances Radiology Interpretation Completed By: Radiologist Summary of Radiographic Findings: Order Information: CHEST PA LAT 2 VWS. Indication: Cough, shortness of breath. 2 views of the chest demonstrates no mediastinal shift. Heart is of normal size and configuration. Lung nascimento show no pleural fluid, pneumonia or pneumothorax. IMPRESSION: No active cardiopulmonary disease is noted. Flu Course/Dx - Course Course Of Treatment: 54 year old female presents with complaints of sudden onset of general malaise, fatigue, body aches, nasal congestion, sore throat, shortness of breath, wheezing, and an occasionally productive cough for clear sputum. No measured fever but reports chills. Mild nausea. + smoker. Did not receive flu vaccine this season. Denies ear pain, dysphagia, chest pain, palpitations, abdominal pain, vomiting, or diarrhea. Afebrile. Hypertensive otherwise vital signs stable. Patient had moderate nasal congestion, normal TMs, pharyngeal erythema without tonsilar swelling or exudate, no cervical lymphadenopathy, mildly diminished breath sounds with diffuse wheezes bilaterally, no rales or rhonchi noted, and otherwise unremarkable exam. Rapid flu test was negative. CXR showed no acute cardiopulmonary pathology. Reviewed results with patient. We discussed that her symptoms were likely a viral URI with reactive airway disease however patient states she is concerned for a bacterial infection an is requesting treatment with antibiotics at this time. Reviewed risks and benefits of treating with antibiotics if this is a viral in origin and she continues to request antibiotic. Will start her on a course of azithromycin as well as a short course of prednisone for the reactive airway disease. Will provide her with an albuterol inhaler to use for SOB and wheezing as well as Tessalon Perles as needed for cough. She is to follow up with her primary care provider within 5 days for recheck of symptoms. Anticipatory guidance and warning symptoms reviewed with the patient. Verbalizes understanding and agrees with POC. - Differential Dx/Diagnosis Differential Diagnosis/HQI/PQRI: Bronchitis, Influenza, Pneumonia, Upper Respiratory Infection Provider Diagnosis: Upper respiratory infection with cough and congestion, Reactive airway disease that is not asthma Discharge ED - Sign-Out/Discharge Documenting (check all that apply): Patient Departure All imaging exams completed and their final reports reviewed: Yes - Discharge Plan Condition: Stable Disposition: HOME Prescriptions: Albuterol HFA INHALER* [Ventolin HFA Inhaler*] 2 puff INH Q4H PRN #1 mdi PRN Reason: Sob/Wheezing Azithromyxin EMILY (NF) [Z-Emily (Zithromax) 250 mg tabs #6] 2 tab PO .TODAY, THEN 1 DAILY #6 tab predniSONE 50 mg TAB [Deltasone 50 mg TAB] 50 mg PO DAILY #5 tab Patient Education Materials: Upper Respiratory Infection (ED), Wheezing (ED) Referrals: Dimas Saenz MD [Primary Care Provider] - 5 Days (For recheck of symptoms.) Additional Instructions: Your history and exam are consistent with an upper respiratory infection with reactive airway disease (wheezing). This is likely from a viral infection however we will start you on antibiotic at your request. Take azithromycin 2 tabs today then 1 tab a day for the next 4 days. Start prednisone 50 mg once a day for 5 days. Use albuterol inhaler 2 puffs every 4-6 hours as needed for shortness of breath or wheezing. Use a saline rinse kit such as Neti Pot or NeilMed at least twice a day to help thin secretions and promote drainage of the sinuses. Use over the counter fluticasone (Flonase) nasal spray 2 sprays each nostril once daily. Take over the counter acetaminophen (Tylenol) or ibuprofen (Advil, Motrin) according to directions as needed for pain or fever. Follow up with your primary care provider in 5 days for a recheck of your symptoms. Seek immediate medical attention in the emergency room if you have fever greater than 100.5 F despite taking acetaminophen or ibuprofen, have chest pain , difficulty breathing, are unable to swallow, or have any worsening of symptoms. - Billing Disposition and Condition Condition: STABLE Disposition: Home
[2019-05-25] MEDS ORDERED: Albuterol/Ipratropium NEB.SOL* Albuterol 2.5 MG/Ipratropium 0.5 MG 3 ML INH ONE (14:12)
[2019-05-25] MEDS ORDERED: Acetaminophen TAB* 325 MG PO ONE (14:30)
== END 2019-05-25 15:30 | disposition home or self-care (01) ==
LOC: UCEAST 12:26
DX: J06.9 Acute upper respiratory infection, unspecified (principal); R05 Cough; R09.81 Nasal congestion; J98.8 Other specified respiratory disorders; M79.10 Myalgia, unspecified site; E66.9 Obesity, unspecified; I10 Essential (primary) hypertension; F17.210 Nicotine dependence, cigarettes, uncomplicated; Z91.09 Other allergy status, other than to drugs and biological substances; Z88.5 Allergy status to narcotic agent; Z91.040 Latex allergy status; Z88.6 Allergy status to analgesic agent
CPT/HCPCS: 71046; 99212; A9270-GY; G0463